=== PATIENT | female | born 1970 ===

== ENCOUNTER 2017-09-05 11:10 | Outpatient (RCR) | payer OTHER ==
[2014-05-19 17:40] VITALS: BMI 25.5
[2015-07-11 15:52] VITALS: BP 135/80
--- NOTE | 2017-08-20 12:33 | RADIOLOGY IMAGING REPORT ---
FACILITY: [facility] PATIENT NAME: Tracy Avila : 1970 MR: [id number] V: [id number] EXAM DATE: ORDERING PHYSICIAN: NAHOMY RICARDO TECHNOLOGIST: Location: [facility] Patient: Tracy Avila : 1970 Visit/Account:[id number] Date of Sevice: 08/20/2017 ABDOMEN/PELVIS CT W/WO CONTRAST HISTORY: Elevated LFTs, flank pain, dark urine, history of breast cancer TECHNIQUE: Axial images acquired through the abdomen/pelvis both with and without IV contrast.. Jacqueline nal and sagittal reformatting also performed. Dose Lowering Technique One of the following dose optimization techniques was utilized in the performance of this exam: Autom ated exposure control; adjustment of the mA and/or kV according to the patient's size; or use of an i terative reconstruction technique. Specific details can be referenced in the facility's radiology C T exam operational policy. CONTRAST: 75 mL Isovue-370 COMPARISON: None FINDINGS: Visualized lung bases: Small amount linear scarring in the inferior right middle lobe 2.6 cm bulla i n the left lower lobe Hepatobiliary: Calcified granulomas. There is a slightly hyperdense 1.9 cm structure within the gal lbladder which may represent a large gallstone or sludge ball. . No evidence of biliary ductal dila tation. Spleen: Calcified granulomas Adrenals: There is mild nodular thickening of the left adrenal gland. Right adrenal gland appears u nremarkable Pancreas: Negative. Kidneys ureters and bladder: There is no demonstration of urolithiasis. There is patchy heterogeneou s enhancement of the right renal parenchyma including the medulla and cortex. This could represent m ultifocal pyelonephritis. Genitalia: There are fallopian tube implants GI: Small hiatal hernia. Moderate amount of fecal material seen throughout colon which can be seen with constipation Vessels/spaces/nodes: Negative. Bones/soft tissues: No aggressive appearing bone lesions are seen Additional findings: None pertinent. IMPRESSION: Evidence of a prior cranial millimeters process There is a 1.9 cm slightly hyperdense structure within the gallbladder which may represent a large ga llstone or sludge ball. There is no evidence of biliary ductal dilatation. Mild nodular thickening of the left adrenal gland There is patchy heterogeneous enhancement of the right renal parenchyma including the medulla and cor wilfrido which could represent multifocal pyelonephritis. Correlation with clinical findings suggested Small hiatal hernia Moderate amount of fecal material seen throughout colon which can be seen with constipation Report Dictated By: Anne Geiger MD at 08/20/2017 12:18 PM Report E-Signed By: Anne Geiger MD at 08/20/2017 12:28 PM WSN:[email or web address]
[2017-08-22 14:14] LABS: PLATELET COUNT, AUTOMATED 399 K/uL (150-450)
[2017-08-29 08:51] LABS: PLATELET COUNT, AUTOMATED 578 K/uL (150-450)
[~2017-09-05 11:10] MED LIST: AMOX-559 PO; ASCO-188 PO; ASPI-1471 PO; ASPI81TA94 PO; AZIT-17 PO; CHOL200021 PO; CHOL200074 PO; CIPR PO; CIPR-214 PO; CIPR500S PO; CYAN25004 PO; DIAZ-308 PO; DM/P295L PO; DOCU-202 PO; DOCU-416 PO; DOCU-442 PO; DOXY50SY2 PO; DULO60CA56 PO; EXE25PT PO; GABA-549 PO; GABA300S PO; GARL3CAP PO; GLUC100026 PO; IBUP400T13 PO; IOPAMIDOL 76% 75 ML INFUS BTL 75 ML ONE; LEVO-85 PO; LOR1 PO; LORA-1455 PO; MULT-1335 PO; NS 0.9% 50 ML VIAL 50 ML ONE; OFLO5DRO45 LEFT EAR; OLME1TAB57 PO; OLME20TA PO; OMEG-11 PO; ONDA8TAB91 PO; OSE75 PO; OXYC-865 PO; PER PO; PREG50CA48 PO; RANI-318 PO; RANI-324 PO; SILV20CR2 TP; TAMO20TA24 PO; TRAZ-156 PO; VALA100062 PO; VENL75CA58 PO; VITA-175 PO; VITA1CAP46 PO
[2017-09-05 11:30] LABS: PLATELET COUNT, AUTOMATED 301 K/uL (150-450)
== END 2017-09-19 11:09 | disposition home or self-care (01) ==
LOC: SPU 11:10
PROVIDERS: ATTEND Nurse Practitioner Primary Care
DX: N10 Acute pyelonephritis (principal); R74.8 Abnormal levels of other serum enzymes; R10.9 Unspecified abdominal pain; N18.3 Chronic kidney disease, stage 3 (moderate); R82.99 Other abnormal findings in urine; R91.8 Other nonspecific abnormal finding of lung field; K44.9 Diaphragmatic hernia without obstruction or gangrene
CPT/HCPCS: 74178; 85025; 87502; J7050; Q9967; 82040; 82247; 82310; 82374; 82435; 82565; 82947; 84075; 84132; 84155; 84295; 84450; 84460; 84520

== ENCOUNTER 2017-10-14 14:07 | Outpatient (RCR) | payer OTHER ==
[2014-05-19 17:40] VITALS: BMI 25.5
[~2017-10-14 14:07] MED LIST changes: +IBUP1TAB78 PO; -IOPAMIDOL 76% 75 ML INFUS BTL 75 ML ONE; +MELO-205 PO; +NAPR220C12 PO; -NS 0.9% 50 ML VIAL 50 ML ONE; +OLM20 PO; -OLME20TA PO
[2017-10-20] MEDS ORDERED: VENL75CA58 PO (08:21)
== END 2017-10-16 13:27 | disposition home or self-care (01) ==
LOC: RAON 14:07
PROVIDERS: ATTEND Radiology Radiation Oncology
DX: Z02.9 Encounter for administrative examinations, unspecified (principal)

== ENCOUNTER → 2017-10-17 | Outpatient (CLI) | payer OTHER ==
[2014-05-19 17:40] VITALS: BMI 25.5
== END ==
LOC: LAB 10:07
PROVIDERS: ATTEND Nurse Practitioner Primary Care
DX: R10.9 Unspecified abdominal pain (principal)
CPT/HCPCS: 81001

== ENCOUNTER → 2017-10-17 | Outpatient (CLI) | payer OTHER ==
[2014-05-19 17:40] VITALS: BMI 25.5
== END ==
LOC: SPU 11:50
PROVIDERS: ATTEND Nurse Practitioner Primary Care
DX: R10.9 Unspecified abdominal pain (principal)
CPT/HCPCS: 82040; 82247; 82310; 82374; 82435; 82565; 82947; 84075; 84132; 84155; 84295; 84450; 84460; 84520

== ENCOUNTER 2017-11-14 11:05 | Outpatient (RCR) | payer OTHER ==
[2014-05-19 17:40] VITALS: BMI 25.5
[2015-07-11 15:52] VITALS: BP 135/80
[~2017-11-14 11:05] MED LIST changes: -RANI-324 PO; +RANI-366 PO
--- NOTE | 2017-11-14 12:07 | RADIOLOGY IMAGING REPORT ---
FACILITY: [facility] PATIENT NAME: Tracy Avila : 1970 MR: [id number] V: [id number] EXAM DATE: ORDERING PHYSICIAN: DESEAN SOTO TECHNOLOGIST: Location: [facility] [place] Patient: Tracy Avila : 1970 Visit/Account:[id number] Date of Sevice: 11/14/2017 Technique: WRIST RIGHT 2 VIEW HISTORY: R wrist pain, injury Comparison studies: None FINDINGS: There is no acute fracture. The alignment of the right wrist is maintained. Soft tissues ar e unremarkable. IMPRESSION: 1. No acute osseous process. Report Dictated By: Axel Deal DO at 11/14/2017 12:00 PM Report E-Signed By: Axel Deal DO at 11/14/2017 12:01 PM WSN:[id number]
[2017-12-01] MEDS ORDERED: OLM20 PO (08:16)
== END 2017-12-26 10:27 | disposition home or self-care (01) ==
LOC: SPU 11:05
PROVIDERS: ATTEND Nurse Practitioner Primary Care
DX: N10 Acute pyelonephritis (principal); R74.8 Abnormal levels of other serum enzymes

== ENCOUNTER → 2018-01-15 | Outpatient (REF) ==
[2014-05-19 17:40] VITALS: BMI 25.5
== END ==
DX: Z02.9 Encounter for administrative examinations, unspecified (principal)

== ENCOUNTER → 2018-02-18 | Outpatient (CLI) | payer OTHER ==
[2014-05-19 17:40] VITALS: BMI 25.5
[~2018-02-18] MED LIST changes: +OMEP40CA48 PO; +ONDA8TAB94 PO
[2018-02-18 12:08] LABS: PLATELET COUNT, AUTOMATED 303 K/uL (150-450)
== END ==
LOC: LAB 11:51
PROVIDERS: ATTEND Nurse Practitioner Primary Care
DX: R10.9 Unspecified abdominal pain (principal); Z85.3 Personal history of malignant neoplasm of breast
CPT/HCPCS: 36415; 81001; 82040; 82150; 82247; 82310; 82374; 82435; 82565; 82947; 83690; 84075; 84132; 84155; 84295; 84450; 84460; 84520; 85025; 86300

== ENCOUNTER → 2018-08-12 | Outpatient (CLI) | payer OTHER ==
[2014-05-19 17:40] VITALS: BMI 25.5
[~2018-08-12] MED LIST changes: -TRAZ-156 PO; +TRAZ50TA34 PO
--- NOTE | 2018-08-12 11:29 | RADIOLOGY IMAGING REPORT ---
FACILITY: [facility] [place] PATIENT NAME: Tracy Avila : 1970 MR: [id number] V: [id number] EXAM DATE: ORDERING PHYSICIAN: CALLI TAYLOR TECHNOLOGIST: Location: [facility] Patient: Tracy Avila : 1970 Visit/Account:[id number] Date of Sevice: 08/12/2018 DEXA Scan Clinical history: History of breast cancer 2013. Comparison: DEXA scan from . LUMBAR SPINE: The bone mineral density (BMD) measured from L1-L4 correlates with a Z-score of 0.2 and a T-score of 0.4 which is Normal as defined by the World Health Organization. The corresponding risk of fracture in the lumbar spine is Not increased compared with a young adult reference population. This value villaseñor s decrease by 2.3 % since the prior study. More than 5% change is considered significant. HIP: Bone mineral density (BMD) measured in the LEFT total hip region correlates with a Z-score 1.1 and a T-score of 1.0 which is normal as defined by the World Health Organization. The corresponding risk of fracture in the hip is Not i ncreased compared to a young adult reference population. This value has decrease by 2.7 % since the p rior study. More than 5% change is considered significant. T score left femoral neck -0.4 Bone mineral density (BMD) measured in the Femoral Neck region measures 0.988 g/cm?. IMPRESSION: 1. Lumbar spine: Normal. There has been 2.3% decrease in the bone mineral density since the previou s exam. 2. Left Total Hip: Normal. There has been 2.7% decrease in the bone mineral density since the previ ous exam. 3. Femoral Neck: Bone Mineral Density is 0.988 g/cm? The next DEXA scan of this patient should include the following sites: L1-L4 and the left hip. FRAX? WHO Fracture Risk Assessment Tool link: <http://www.shef.ac.uk/FRAX/tool.jsp?locationValue=9> PLEASE NOTE: 1) The World Health Organization defines low BMD as follows: T-score Normal > -1 Osteopenia < -1 and > -2.5 Osteoporosis < -2.5 without fractures Established osteoporosis < -2.5 with fractures 2) In general, you may wish to consider: Diagnosis Treatment Follow-up DEXA Normal BMD Prevention 2-3 years Osteopenia Prevention/therapy 1-2 years Osteoporosis Therapy Yearly 3) Fracture risk estimated from the T-score is more accurate for vertebral fractures (often spontane ous) than for hip fractures. Report Dictated By: Anne Geiger MD at 08/12/2018 11:24 AM Report E-Signed By: Anne Geiger MD at 08/12/2018 11:26 AM WSN:[email or web address]
== END ==
LOC: RAD 00:52
DX: C50.411 Malignant neoplasm of upper-outer quadrant of right female breast (principal); Z17.0 Estrogen receptor positive status [ER+]; Z91.89 Other specified personal risk factors, not elsewhere classified
CPT/HCPCS: 77080

== ENCOUNTER → 2018-09-16 | Outpatient (CLI) | payer OTHER ==
[2014-05-19 17:40] VITALS: BMI 25.5
[~2018-09-16] MED LIST changes: +CALC-83; +CHOL500050 PO; +[UNRECOGNIZED DRUG - CODE] PO
== END ==
LOC: LAB 13:32
PROVIDERS: ATTEND Nurse Practitioner Primary Care
DX: E55.9 Vitamin D deficiency, unspecified (principal); Z85.3 Personal history of malignant neoplasm of breast
CPT/HCPCS: 36415; 82306; 86300

== ENCOUNTER 2018-09-21 13:28 | Outpatient (RCR) | payer OTHER ==
[2014-05-19 17:40] VITALS: Ht 165.1 cm; Wt 78.0 kg
[~2018-09-21] VITALS: Ht 165.1 cm; Wt 78.0 kg
[2018-09-22] MEDS ORDERED: NS(*) 0.9% 100 ML BAG 100 ML IVPB PRN (15:30)
[2018-09-22] MEDS ORDERED: DEXTROSE 5%(*) 100 ML BAG 100 ML IVPB PRN (15:30)
[2018-09-22] MEDS ORDERED: LIDOCAINE/SOD BICARB 8.4% SYR ID PRN (15:30)
[2018-09-22 15:40] VITALS: BP 105/85
[2018-09-22] MEDS ORDERED: ZOLEDRONIC ACID 4 MG/5 ML VIAL 4 MG in NS(*) 0.9% 100 ML BAG 100 ML IVPB ONE (16:35)
[2018-09-22] MEDS ORDERED: ZOLEDRONIC ACID 4 MG/5 ML VIAL 3.3 MG in NS(*) 0.9% 100 ML BAG 100 ML IVPB ONE (16:35)
[2018-10-13] MEDS ORDERED: CALC500T6 PO (14:57)
[2018-10-20] MEDS ORDERED: VENL75CA58 PO (11:09)
[2018-11-04] MEDS ORDERED: ZOLP-1 PO (15:30)
[2018-11-26] MEDS ORDERED: DOCU-416 PO (12:24)
[2018-11-26] MEDS ORDERED: OXYC-854 PO (12:24)
[2018-12-05] MEDS ORDERED: OXYC-865 PO (23:22)
[2018-12-07] MEDS ORDERED: [UNRECOGNIZED DRUG - CODE] IV (10:37)
[2018-12-07] MEDS ORDERED: ONDA4TAB9 PO (10:37)
[2018-12-08] MEDS ORDERED: ACET500T68 PO (11:05)
[2018-12-08] MEDS ORDERED: IBUP600T22 PO (11:05)
[2018-12-09 10:36] VITALS: Ht 165.1 cm; Wt 78.0 kg
[2018-12-17] MEDS ORDERED: BENZ100C4 PO (08:00)
== END 2018-12-20 ==
LOC: ONC 13:28
PROVIDERS: ATTEND Internal Medicine
DX: M81.8 Other osteoporosis without current pathological fracture (principal)
CPT/HCPCS: 83735; 84100; 96365; J3489; J7050; 82040; 82247; 82310; 82374; 82435; 82565; 82947; 84075; 84132; 84155; 84295; 84450; 84460; 84520

== ENCOUNTER → 2018-11-25 | Outpatient (CLI) | payer OTHER ==
[2014-05-19 17:40] VITALS: BMI 25.5
[~2018-11-25] MED LIST changes: +CALC500T6 PO; +OXYC-854 PO; +ZOLP-1 PO
[2018-11-25 08:35] LABS: PLATELET COUNT, AUTOMATED 341 K/uL (150-450)
== END ==
LOC: SPU 08:19
PROVIDERS: ATTEND Surgery
DX: C50.911 Malignant neoplasm of unspecified site of right female breast (principal); I10 Essential (primary) hypertension
CPT/HCPCS: 82310; 82374; 82435; 82565; 82947; 84132; 84295; 84520; 85025

== ENCOUNTER 2018-11-26 02:30 | Day surgery (SDC) | payer OTHER ==
[2014-05-19 17:40] VITALS: Ht 167.6 cm; Wt 79.4 kg
[~2018-11-26] VITALS: Ht 167.6 cm; Wt 79.4 kg
[2018-11-26] VITALS (7 sets, daily range): BP systolic 107–133; BP diastolic 67–91
[~2018-11-26 02:30] MED LIST changes: -OXYC-854 PO
--- NOTE | 2018-11-26 08:27 | EKG ---
FACILITY: [facility] PATIENT NAME: LOTTIE BACA : [id number] MR: [id number] V: [id number] EXAM DATE: ORDERING PHYSICIAN: ROBBIE HERNANDEZ TECHNOLOGIST: BHARAT Test Reason : PREOP-MASTECTOMY Blood Pressure : / mmHG Vent. Rate : 076 BPM Atrial Rate : 076 BPM P-R Int : 154 ms QRS Dur : 070 ms QT Int : 390 ms P-R-T Axes : 064 074 069 degrees QTc Int : 438 ms Sinus rhythm No acute appearing findings No previous ECGs available Confirmed by BREANNA GODDARD ([id number]) on 11/26/2018 2:37:20 PM Referred By: EMA Confirmed By:BREANNA GODDARD
[2018-11-26] MEDS ORDERED: MIDAZOLAM 2 MG/2 ML VIAL IVP PRN (08:55)
[2018-11-26] MEDS ORDERED: NORMOSOL R SOLN(*) 1000 ML BAG 1,000 ML IV PRN (08:55)
[2018-11-26] MEDS ORDERED: LIDOCAINE/SOD BICARB 8.4% SYR ID ONE (08:55)
[2018-11-26] MEDS ORDERED: ceFAZolin(*) 2GM/D5W 50ML 50 ML IVPB ONE (08:55)
[2018-11-26] MEDS ORDERED: fentaNYL CITR 250 MCG/5 ML AMP ONE (09:12)
[2018-11-26] MEDS ORDERED: LIDOCAINE 2% IV 100 MG/5ML SYR ONE (09:12)
[2018-11-26] MEDS ORDERED: PROPOFOL EMUL(*) 10MG/ML 20 ML 20 ML ONE (09:12)
[2018-11-26] MEDS ORDERED: ROPIVACAINE 0.5% 20 ML VIAL ONE ×3 (09:24→11:29)
[2018-11-26] MEDS ORDERED: DEXAMETHASONE SOD 4 MG/ML VIAL ONE (09:50)
[2018-11-26] MEDS ORDERED: ONDANSETRON 4 MG/2 ML VIAL ONE (09:50)
[2018-11-26] MEDS ORDERED: PHENYLEPHRINE 10 MG/1 ML VIAL ONE (10:11)
[2018-11-26] MEDS ORDERED: VASOPRESSIN 20 UNIT/ML VIAL ONE (10:24)
[2018-11-26] MEDS ORDERED: DOCU-416 PO (12:24)
[2018-11-26] MEDS ORDERED: OXYC-854 PO (12:24)
--- NOTE | 2018-11-26 12:31 | Short(Outpt) Discharge Summary ---
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 (2) S/P mastectomy, bilateral Status: Chronic Departure Discharge to: Home, Self Care Discharge Instructions Home Meds Active Scripts Docusate Sodium (COLACE) 100 Mg Capsule, 1 CAP PO BID, #30 CAPSULE 0 Refills Prov:SCAR BOO MD 11/26/18 Oxycodone Hcl/Acet 5/325 Mg (ENDOCET 5-325 TABLET) 1 Each Tablet, 1 TAB PO Q4H PRN for PAIN, #20 TAB 0 Refills Prov:SCAR BOO MD 11/26/18 Zolpidem Tartrate (AMBIEN) 5 Mg Tablet, 1 TAB PO QHS PRN for INSOMNIA, #30 TAB 0 Refills Prov:DESEAN SOTO DNP, COAL INSPECTOR-BC 11/04/18 Venlafaxine Hcl (EFFEXOR XR) 75 Mg Cap.er.24h, 75 MG PO QDAY, #90 TAB 1 Refill Prov:DESEAN SOTO DNP, COAL INSPECTOR-BC 10/20/18 Olmesartan Medoxomil (BENICAR) 20 Mg Tablet, 1 TAB PO QDAY, #90 TAB 3 Refills Prov:DESEAN SOTO DNP, COAL INSPECTOR-BC 09/16/18 Omeprazole (OMEPRAZOLE) 40 Mg Capsule.dr, 40 MG PO QDAY for 90 Days, #90 CAP 1 Refill Prov:DESEAN SOTO DNP COAL INSPECTOR-BC 06/09/18 Gabapentin (GABAPENTIN) 300 Mg Capsule, 3 CAP PO QHS for neuropathy, #90 CAPSULE 11 Refills Prov:DESEAN SOTO DNP COAL INSPECTOR-BC 03/11/18 Ondansetron (ZOFRAN ODT) 8 Mg Tab.rapdis, 1 TAB PO Q12H PRN for NAUSEA, #10 TAB 0 Refills Prov:DESEAN SOTO DNP, [facility] 02/18/18 Reported Medications Calcium Carbonate (CALCIUM) Unknown Strength Tablet, PO QDAY 10/13/18 Diflunisal (DIFLUNISAL) 500 Mg Tablet, 1 TAB PO QDAY, TAB 09/16/18 Exemestane (AROMASIN) 25 Mg Tab, 1 TAB PO QDAY, TAB 08/20/17 [place]-3 Fatty Acids/Fish Oil (FISH OIL 1,000 MG CAPSULE) 1 Each Capsule, 1 CAP PO QDAY, CAPSULE 11/12/16 Cholecalciferol (Vitamin D3) (VITAMIN D-3) 2,000 Unit Capsule, 5000 UNIT PO DAILY, CAPSULE 05/20/16 Follow up Referrals: General Surgery - 12/09/18 @ Surgery, General with SCAR BOO MD You have a follow up appointment scheduled with Dr. Boo on 12/09/18, at 3:30pm. Diet: Regular Activity: No Heavy Lifting Special Instructions: You may remove all the surgical dressings and drain dressings on 11/18/18, then you can shower. After showering, leave the incisions open to air but leave the steristrips in place until they fall off on their own. You may place drain sponges around the drains if they are leaking around the drains. Don't immerse the incisions or drains until 2 weeks after the drains are removed. Keep a drainage log and record how much you empty from each drain every day and bring log to your follow up appointment so I can determine if the drains can be safely removed. If one or both drain less than 25mL per 24 hours for 3 days in a row, call Ronel, my clinic nurse, and she'll have you come in so I can pull the drain(s) that are draining less than 25mL/24 hours. Avoid any activity that involves raising your arms above the level of your shoulders or behind your back for 2 weeks after surgery. Problem Qualifiers (1) Disorder of breast implant: Encounter type: subsequent encounter Qualified Codes: T85.9XXD - Unspecified complication of internal prosthetic device, implant and graft, subsequent encounter SCAR BOO MD Nov 26, 2018 12:31
--- NOTE | 2018-11-26 12:38 | Post Operative Progress Note ---
Post Operative Progress Note Date: Nov 26, 2018 Time: 12:31 Surgeon: Nell Dictation number: [id number] Anesthesia: LMA by Dr. Ramirez Pre-Op Diagnosis: Undesired left breast implant Excess skin in both mastectomy sites Post-Op Diagnosis: JAKOB Findings: C/W dx Procedure(s): Left breast implant removal Bilateral mastectomy revision Specimen Removed:(May be N/A): Right Breast tissue Left Breast tissue Complications: None Fluids: See anesthesia record Estimated Blood Loss: Minimal Date OP Note Dictated: Nov 26, 2018 Time OP Note Dictated: 12:33 SCAR BOO MD Nov 26, 2018 12:38
--- NOTE | 2018-11-26 14:26 | OPERATIVE REPORT 1 ---
EVENT DATE: November 26, 2018 SURGEON: Elder Camejo MD ANESTHESIOLOGIST: Kentrell Ramirez MD ANESTHESIA: LMA. PREOPERATIVE DIAGNOSIS 1. History of bilateral mastectomies for right breast cancer. 2. Undesired left breast implant. POSTOPERATIVE DIAGNOSIS 1. History of bilateral mastectomies for right breast cancer. 2. Undesired left breast implant. PROCEDURE PERFORMED 1. Removal of left breast implant. 2. Bilateral mastectomy revision. COMPLICATIONS None. CONDITION Stable. ESTIMATED BLOOD LOSS Minimal. INDICATIONS Patient is a 48-year old female who had right breast cancer about five years ago and has really responded well to therapy and remains in remission but she underwent bilateral tissue expanders and then ultimately subpectoral implants after she was completed with therapy. However, her right breast healing was complicated by dehiscence and ultimately that implant had to be removed and then she decided not to have it replaced and now wishes to have left implant removed and wishes to have the excess skin excised to create a more flat contour of her chest. DESCRIPTION OF PROCEDURE The patient was brought to the operating room and placed supine on the operating table, where LMA anesthesia was administered and bilateral chest was prepped and draped in sterile fashion. Time-out was completed and I had previously marked the skin in preop of her right breast. I anesthetized the skin where I marked it and removed a large ellipse of excess skin all the way through the dermis and subcutaneous fat down to the scar tissue and there was a capsule that I stripped a good part of it out and then scraped up the rest with a Bovie scratch pad. I passed the specimen off the field and then placed a 10 mm flat David-Salazar drain in the subcutaneous pocket and then closed the resulting wound with interrupted 3-0 Vicryl deep sutures followed by another layer of 3-0 Vicryl interrupted subcutaneous sutures and then 3-0 Vicryl deep dermal sutures and 4-0 Monocryl subcuticular sutures. I then went over to the other side and marked the skin to make it symmetric with the first side and then made an incision in the left breast and down to the capsule and out in the space where the implant is located and then removed the implant easily. I then removed as much as the capsule as I could but some of it was very adherent to the pectoralis muscle so I left this one alone and scraped it with a Bovie scratchpad. I then removed a large ellipse of skin and using my measurements to make it look as symmetric to the patient's right side as I could. Once this was completed, I placed a 10 mm flat David-Salazar drain and sewed both of these to the skin with 0 silk suture. I then closed this wound in the same fashion that I closed the first one with deep interrupted 3-0 Vicryl sutures followed by interrupted 3-0 Vicryl subcutaneous sutures. The skin was closed with interrupted 3-0 Vicryl deep dermal sutures and 4-0 Monocryl running subcuticular sutures. The skin was cleaned and dried on both sides and steri-strips were applied on both incisions followed by sterile surgical dressings and then the drains were covered with drain gauze, which was taped into place. She was then awakened and LMA removed. She was transported to the recovery room in stable condition, having tolerated the procedure without any apparent problems. VIN
== END 2018-11-26 13:00 | disposition home or self-care (01) ==
LOC: OR 02:30
PROVIDERS: ATTEND Surgery
DX: Z98.82 Breast implant status (principal); Z85.3 Personal history of malignant neoplasm of breast; I10 Essential (primary) hypertension
CPT/HCPCS: 19328; 88302; 93005; J1100; J2001; J2250; J2370; J2405; J2704; J2795; J3010; J3490; J0690

== ENCOUNTER 2018-12-05 21:09 | Emergency (ER) | payer OTHER ==
[2014-05-19 17:40] VITALS: Wt 79.4 kg
[~2018-12-05 21:09] MED LIST changes: +OXYC-854 PO
--- NOTE | 2018-12-05 21:23 | ER Report ---
History and Physical Time Seen By MD: 21:23 Hx. of Stated Complaint: Pt worried about post surgery infection. HPI/ROS CHIEF COMPLAINT: Postoperative infection HISTORY OF PRESENT ILLNESS: This is a 48-year-old female. She had a recent removal of breast implant from the left breast and a mastectomy on the right breast November 26. Incisions are healing well. David-Salazar drain in place with minimal drainage. Today started having increased pain in the right chest wall. This appears to be over the site where the MÓNICA drain goes through the skin but not associated with the incision. Called her surgeon who started her on Au gmentin and she has had one dose today. They were going to pull the MÓNICA drain however started having some purulent drainage from this area which was concerning. Allergies: Coded Allergies: latex (Unverified Allergy, Intermediate, RASH, 12/05/18) Home Meds Active Scripts Oxycodone Hcl/Acetaminophen (PERCOCET 5-325 MG TABLET) 1 Each Tablet, 1 EACH PO Q4H PRN for PAIN, #12 TAB 0 Refills Prov:VERONIKA HARRISON MD 12/05/18 Docusate Sodium (COLACE) 100 Mg Capsule, 1 CAP PO BID, #30 CAPSULE 0 Refills Prov:SCAR BOO MD 11/26/18 Oxycodone Hcl/Acet 5/325 Mg (ENDOCET 5-325 TABLET) 1 Each Tablet, 1 TAB PO Q4H PRN for PAIN, #20 TAB 0 Refills Prov:SCAR BOO MD 11/26/18 Zolpidem Tartrate (AMBIEN) 5 Mg Tablet, 1 TAB PO QHS PRN for INSOMNIA, #30 TAB 0 Refills Prov:DESEAN SOTO DNP, FNP-ANNIE 11/04/18 Venlafaxine Hcl (EFFEXOR XR) 75 Mg Cap.er.24h, 75 MG PO QDAY, #90 TAB 1 Refill Prov:DESEAN SOTO DNP, FNP-BC 10/20/18 Olmesartan Medoxomil (BENICAR) 20 Mg Tablet, 1 TAB PO QDAY, #90 TAB 3 Refills Prov:DESEAN SOTO DNP, FNP-BC 09/16/18 Omeprazole (OMEPRAZOLE) 40 Mg Capsule.dr, 40 MG PO QDAY for 90 Days, #90 CAP 1 Refill Prov:DESEAN SOTO DNP, FNP-BC 06/09/18 Gabapentin (GABAPENTIN) 300 Mg Capsule, 3 CAP PO QHS for neuropathy, #90 CAPSULE 11 Refills Prov:DESEAN SOTO DNP, FNP- 03/11/18 Ondansetron (ZOFRAN ODT) 8 Mg Tab.rapdis, 1 TAB PO Q12H PRN for NAUSEA, #10 TAB 0 Refills Prov:DESEAN SOTO DNP, FNP- 02/18/18 Reported Medications Calcium Carbonate (CALCIUM) Unknown Strength Tablet, PO QDAY 10/13/18 Diflunisal (DIFLUNISAL) 500 Mg Tablet, 1 TAB PO QDAY, TAB 09/16/18 Exemestane (AROMASIN) 25 Mg Tab, 1 TAB PO QDAY, TAB 08/20/17 [place]-3 Fatty Acids/Fish Oil (FISH OIL 1,000 MG CAPSULE) 1 Each Capsule, 1 CAP PO QDAY, CAPSULE 11/12/16 Cholecalciferol (Vitamin D3) (VITAMIN D-3) 2,000 Unit Capsule, 5000 UNIT PO DAILY, CAPSULE 05/20/16 Reviewed Nurses Notes: Yes Hx Smoking: No Smoking Status: Never Smoker Exposure to Second Hand Smoke?: No Hx Substance Use Disorder: No Hx Alcohol Use: Yes Constitutional Vital Sign - Last 24 Hours 12/05/18 12/05/18 12/05/18 12/05/18 21:13 21:14 21:24 21:39 Temp 99.8 Pulse 116 118 109 Resp 16 B/P (MAP) 116/76 116/76 (89) Pulse Ox 92 94 90 O2 Delivery Room Air 12/05/18 12/05/18 12/05/18 12/05/18 21:54 22:09 22:24 22:29 Pulse 99 99 97 102 Pulse Ox 91 91 87 92 12/05/18 12/05/18 12/05/18 12/05/18 22:33 22:44 22:51 22:59 Pulse 99 101 B/P (MAP) 106/72 (83) Pulse Ox 88 94 O2 Flow Rate 1.0 12/05/18 12/05/18 12/05/18 12/05/18 23:00 23:14 23:29 23:30 Pulse 98 96 B/P (MAP) 107/73 (84) 101/68 (79) Pulse Ox 94 97 12/05/18 23:44 Pulse 94 Pulse Ox 94 Physical Exam General Appearance: The patient is alert, has no immediate need for airway protection and no current signs of toxicity. Respiratory: Breathing easily, clear to auscultation. Cardiac: regular rate and rhythm Neuro: Alert and oriented, no deficits Skin: Area of redness marked earlier by the patient and her . Incision itself looks good. The area of redness marked is below this includes an area where the MÓNICA drain goes through the skin. No current purulence in the MÓNICA drain. Red skin is hot and warm. Cannot feel any areas of fluid collection or fluctuance. DIFFERENTIAL DIAGNOSIS: After history and physical exam differential diagnosis was considered for cellulitis, we'll go ahead and get labs and also ultrasound of the area to rule out abscess. Medical Decision Making Data Points Result Diagram: 12/05/18211912/05/182119 Laboratory Hematology Test 08/15/14 00:00 12/05/18 21:20 Neutrophils # 2.1 K/CUMM (2.0-8.5) Hematocrit 29.0 % (42-52) Hemoglobin 9.5 G/DL (12-16) Platelet Count 473 th/mm3 White Blood Count 3.6 K/CUMM (4.5-10.5) Albumin 4.2 G/DL (3.5-5) 4.3 g/dl (3.5-5.0) Alkaline Phosphatase 90 IU/L (38-126) 119 U/L (0-126) Alanine Aminotransferase (ALT/SGPT) 33 U/L (9-52) 66 U/L (0-56) Aspartate Amino Transf (AST/SGOT) 20 IU/L (14-36) 91 U/L (0-35) Blood Urea Nitrogen 16 MG/DL (7-20) 13 mg/dl (7-18) Calcium Level 9.2 MG/DL (65-115) 9.8 mg/dl (8.4-10.2) Chloride Level 103 MMOL/L (22-30) 98 mmol/L (98-107) Carbon Dioxide Level 28 MMOL/L (22-30) 24 mmol/L (22-31) Creatinine 0.62 MG/DL (0.7-1.2) 1.00 mg/dl (0.52-1.04) Glucose Level 102 MG/DL (70-110) Potassium Level 3.8 MMOL/L (3.6-5.0) 3.7 mmol/L (3.5-5.0) Sodium Level 137 MMOL/L (136-145) 134 mmol/L (137-145) Total Protein 6.9 G/DL (6.3-8.2) 7.4 g/dl (6.3-8.2) Total Bilirubin 0.4 MG/DL (1.1-1.5) 0.5 mg/dl (0.2-1.3) Red Blood Count 4.49 M/uL (4.17-5.56) Mean Corpuscular Volume 92.3 fL (80.0-96.0) Mean Corpuscular Hemoglobin 31.9 pg (26.0-33.0) Mean Corpuscular Hemoglobin Concent 34.5 g/dL (32.0-36.0) Red Cell Distribution Width 12.9 % (11.5-14.5) Mean Platelet Volume 7.7 fL (7.2-11.1) Neutrophils (%) (Auto) 81.8 % (39.4-72.5) Lymphocytes (%) (Auto) 9.1 % (17.6-49.6) Monocytes (%) (Auto) 7.7 % (4.1-12.4) Eosinophils (%) (Auto) 0.6 % (0.4-6.7) Basophils (%) (Auto) 0.8 % (0.3-1.4) Nucleated RBC Relative Count (auto) 0.0 /100WBC Neutrophils # (Auto) 8.6 K/uL (2.0-7.4) Lymphocytes # (Auto) 1.0 K/uL (1.3-3.6) Monocytes # (Auto) 0.8 K/uL (0.3-1.0) Eosinophils # (Auto) 0.1 K/uL (0.0-0.5) Basophils # (Auto) 0.1 K/uL (0.0-0.1) Nucleated RBC Absolute Count (auto) 0.01 K/uL Erythrocyte Sedimentation Rate 38 mm/HOUR (0-20) Glomerular Filtration Rate Calc 58.9 Random Glucose 120 mg/dl (75-110) Lactate 2.3 mmol/L (0.7-2.1) Chemistry Test 08/15/14 00:00 12/05/18 21:20 Neutrophils # 2.1 K/CUMM (2.0-8.5) Hematocrit 29.0 % (42-52) 41.5 % (34.0-47.0) Hemoglobin 9.5 G/DL (12-16) 14.3 g/dL (12.0-16.0) Platelet Count 473 th/mm3 331 K/uL (150-450) White Blood Count 3.6 K/CUMM (4.5-10.5) 10.5 k/uL (4.5-11.0) Albumin 4.2 G/DL (3.5-5) 4.3 g/dl (3.5-5.0) Alkaline Phosphatase 90 IU/L (38-126) 119 U/L (0-126) Alanine Aminotransferase (ALT/SGPT) 33 U/L (9-52) 66 U/L (0-56) Aspartate Amino Transf (AST/SGOT) 20 IU/L (14-36) 91 U/L (0-35) Blood Urea Nitrogen 16 MG/DL (7-20) Calcium Level 9.2 MG/DL (65-115) 9.8 mg/dl (8.4-10.2) Chloride Level 103 MMOL/L (22-30) Carbon Dioxide Level 28 MMOL/L (22-30) Creatinine 0.62 MG/DL (0.7-1.2) Glucose Level 102 MG/DL (70-110) Potassium Level 3.8 MMOL/L (3.6-5.0) Sodium Level 137 MMOL/L (136-145) Total Protein 6.9 G/DL (6.3-8.2) 7.4 g/dl (6.3-8.2) Total Bilirubin 0.4 MG/DL (1.1-1.5) 0.5 mg/dl (0.2-1.3) Red Blood Count 4.49 M/uL (4.17-5.56) Mean Corpuscular Volume 92.3 fL (80.0-96.0) Mean Corpuscular Hemoglobin 31.9 pg (26.0-33.0) Mean Corpuscular Hemoglobin Concent 34.5 g/dL (32.0-36.0) Red Cell Distribution Width 12.9 % (11.5-14.5) Mean Platelet Volume 7.7 fL (7.2-11.1) Neutrophils (%) (Auto) 81.8 % (39.4-72.5) Lymphocytes (%) (Auto) 9.1 % (17.6-49.6) Monocytes (%) (Auto) 7.7 % (4.1-12.4) Eosinophils (%) (Auto) 0.6 % (0.4-6.7) Basophils (%) (Auto) 0.8 % (0.3-1.4) Nucleated RBC Relative Count (auto) 0.0 /100WBC Neutrophils # (Auto) 8.6 K/uL (2.0-7.4) Lymphocytes # (Auto) 1.0 K/uL (1.3-3.6) Monocytes # (Auto) 0.8 K/uL (0.3-1.0) Eosinophils # (Auto) 0.1 K/uL (0.0-0.5) Basophils # (Auto) 0.1 K/uL (0.0-0.1) Nucleated RBC Absolute Count (auto) 0.01 K/uL Erythrocyte Sedimentation Rate 38 mm/HOUR (0-20) Glomerular Filtration Rate Calc 58.9 Lactate 2.3 mmol/L (0.7-2.1) EKG/Imaging Imaging Examination: Ultrasound right chest wall-nonvascular HISTORY: Implant removal and revision mastectomy with drain placement on 11/26/2018. Erythema near the right MÓNICA drain. TECHNIQUE: Grayscale and color flow imaging is performed of the area of interest. Comparison images were obtained of the left side. FINDINGS: There is a tiny crescent shaped anechoic region seen just medial to the right MÓNICA drain. This likely represents trace fluid near/in the operative bed. No surrounding increased color flow is seen to suggest inflammation or abscess. IMPRESSION: 1. Minimal anechoic fluid near the MÓNICA drain in the right chest wall. This is likely a normal postoperative finding. No surrounding color flow to suggest inflammation/abscess. Report Dictated By: Tj Young at 12/05/2018 10:52 PM ED Course/Re-evaluation ED Course Sedimentation rate is mildly elevated. White count is normal but does show a sl ight shift. Metabolic panel normal. Reviewed all this with the patient. Also called and spoke with her surgeon, Dr. Zhang. We will give the patient a dose of IV Rocephin and continue with the Augmentin. MÓNICA drain is pulled here in the ER today. Return if worsening symptoms, otherwise will follow-up with Dr. Zhang on Friday. Decision to Disposition Date: Dec 05, 2018 Decision to Disposition Time: 23:21 Depart Departure Latest Vital Signs Vital Signs Date Time Temp Pulse Resp B/P (MAP) Pulse Ox O2 Delivery O2 Flow Rate FiO2 12/05/18 23:44 94 94 12/05/18 23:30 101/68 (79) 12/05/18 22:51 1.0 12/05/18 21:13 99.8 16 Room Air Impression: Primary Impression: Cellulitis Condition: Improved Disposition: HOME OR SELF-CARE Referrals: DESEAN SOTO DNP, [employer]ER-BC (PCP) New Scripts Oxycodone Hcl/Acetaminophen (PERCOCET 5-325 MG TABLET) 1 Each Tablet 1 EACH PO Q4H PRN for PAIN, #12 TAB 0 Refills Prov: VERONIKA HARRISON MD 12/05/18 Patient Instructions: Cellulitis (ED) Additional Instructions: Keep taking the Augmentin twice a day. Follow-up with Dr. Boo early this coming week for re-evaluation. Return if worsening fevers, pain, nausea/vomiting. Problem Qualifiers Primary Impression: Cellulitis Site of cellulitis: trunk Site of cellulitis of trunk: chest wall Qualified Codes: L03.313 - Cellulitis of chest wall VERONIKA HARRISON MD Dec 05, 2018 21:23
[2018-12-05] MEDS ORDERED: ONDANSETRON 4 MG ODT TABDP SL ONE (21:30)
[2018-12-05 21:57] LABS: PLATELET COUNT, AUTOMATED 331 K/uL (150-450)
--- NOTE | 2018-12-05 23:04 | RADIOLOGY IMAGING REPORT ---
FACILITY: [facility] - [place] PATIENT NAME: Tracy Avila : 1970 MR: [id number] V: [id number] EXAM DATE: ORDERING PHYSICIAN: VERONIKA HARRISON TECHNOLOGIST: Location: [facility] [place] Patient: Tracy Avila : 1970 Visit/Account:[id number] Date of Sevice: 12/05/2018 Examination: Ultrasound right chest wall-nonvascular HISTORY: Implant removal and revision mastectomy with drain placement on 11/26/2018. Erythema near the right MÓNICA drain. TECHNIQUE: Grayscale and color flow imaging is performed of the area of interest. Comparison images w ere obtained of the left side. FINDINGS: There is a tiny crescent shaped anechoic region seen just medial to the right MÓNICA drain. This likely r epresents trace fluid near/in the operative bed. No surrounding increased color flow is seen to sugge st inflammation or abscess. IMPRESSION: 1. Minimal anechoic fluid near the MÓNICA drain in the right chest wall. This is likely a normal postoper ative finding. No surrounding color flow to suggest inflammation/abscess. Report Dictated By: Tj Young at 12/05/2018 10:52 PM Report E-Signed By: Tj Young at 12/05/2018 11:01 PM WSN:[id number]
[2018-12-05] MEDS ORDERED: cefTRIAXone 1 GM VIAL IVP ONE (23:20)
[2018-12-05] MEDS ORDERED: oxyCODONE/ACETAMIN 5/325MG TH 2 TAB/BOTTLE PO ONE (23:20)
[2018-12-05] MEDS ORDERED: OXYC-865 PO (23:22)
[2018-12-05 23:30] VITALS: BP 101/68
== END 2018-12-05 23:59 | disposition home or self-care (01) ==
LOC: ER 21:18
DX: L03.313 Cellulitis of chest wall (principal)
CPT/HCPCS: 36415; 76999; 83605; 85025; 85651; 87040; 96374; 99284; J0696; S0119; 82040; 82247; 82310; 82374; 82435; 82565; 82947; 84075; 84132; 84155; 84295; 84450; 84460; 84520

== ENCOUNTER → 2018-12-07 | Outpatient (CLI) | payer OTHER ==
[2014-05-19 17:40] VITALS: BMI 25.5
[~2018-12-07] MED LIST changes: +ACET500T68 PO; +DEXTROSE 5%(*) 100 ML BAG 100 ML IVPB PRN; +IBUP600T22 PO; +LIDOCAINE/SOD BICARB 8.4% SYR ID PRN; +NS(*) 0.9% 100 ML BAG 100 ML IVPB PRN; +ONDA4TAB9 PO; +ONDANSETRON 4 MG/2 ML VIAL IVP ONE; +[UNRECOGNIZED DRUG - CODE] IV
[2018-12-07] MEDS: LR(*) 1000 ML BAG 1,000 ML IV SCH ×2 (11:18→12:20)
[2018-12-07 11:30] VITALS: BP 110/70
== END ==
LOC: SPU 10:52
PROVIDERS: ATTEND Surgery
DX: L03.90 Cellulitis, unspecified (principal); E86.0 Dehydration
CPT/HCPCS: 96361; 96374; J2405; J7120

== ENCOUNTER 2018-12-08 09:24 | Inpatient (IN) | payer OTHER ==
[~2018-12-08] VITALS: Ht 167.6 cm; Wt 78.1 kg
[~2018-12-08 09:24] MED LIST changes: -ACET500T68 PO; -DEXTROSE 5%(*) 100 ML BAG 100 ML IVPB PRN; -IBUP600T22 PO; -LIDOCAINE/SOD BICARB 8.4% SYR ID PRN; -NS(*) 0.9% 100 ML BAG 100 ML IVPB PRN; -ONDANSETRON 4 MG/2 ML VIAL IVP ONE
[2018-12-08 10:50] VITALS: BP 107/75
[2018-12-08] MEDS ORDERED: VANCOMYCIN 1 GM ADDVIAL 1 GM in NS(*) 0.9% 250 ML ADDVAN BAG 250 ML IVPB ONE (10:55)
[2018-12-08] MEDS ORDERED: FLUSH 10 ML SYR IVP PRN (10:55)
[2018-12-08] MEDS ORDERED: IBUP600T22 PO (11:05)
[2018-12-08] MEDS ORDERED: ACET500T68 PO (11:05)
--- NOTE | 2018-12-08 11:06 | Gen Surgery History & Physical ---
History of Present Illness Chief Complaint Pain, swelling, redness, right chest History of Present Illness 48-year-old female who is now 12 days status post left breast implant removal and bilateral mastectomy revision. She was doing well until 4 days ago when she started feeling increasing pain and swelling in her right chest. This was down by one of the drains. She also experienced redness and so I started her on Augmentin but she felt like she was getting worse and so went into the emergency room. She was given Rocephin and an ultrasound did not reveal any postoperative fluid collections. I then saw her in my office yesterday and she felt pretty poorly and so we gave her 2 L of crystalloid and she was sent home. She calls today reporting that she is feeling worse and feels that there is increased pain and redness in her right chest. I had her come in for direct admission so we can start IV antibiotics and she is failing outpatient therapy. History Problems: (1) Breast cancer, right breast Onset Date: 04/20/2014 Status: Resolved (2) History of lymph node dissection of right axilla Onset Date: ~ 05/2014 Status: Chronic (3) History of mastectomy, total Onset Date: ~ 04/2014 Status: Chronic (4) H/O anterior cruciate ligament surgery Status: Chronic (5) Family history of malignant neoplasm of gastrointestinal tract (6) Family history of polyps in the colon (7) FH: stroke (8) FH: colon cancer (9) FH: Alzheimers disease (10) FH: uterine cancer (11) FH: renal failure (12) FH: myocardial infarction (13) FHx: hypertension (14) S/P mastectomy, bilateral Status: Chronic (15) Consumes alcohol occasionally Status: Acute Home Meds Active Scripts Ondansetron 4 Mg Odt (ONDANSETRON 4 MG ODT) 4 Mg Tab.rapdis, 1 TAB PO TID PRN for NAUSEA, #20 TAB 0 Refills Prov:SCAR BOO MD 12/07/18 Ondansetron Hcl In 0.9 % Nacl (ONDANSETRON-NS 8 MG/50 ML BAG) 8 Mg/50 Ml Piggyback, 4 MG IV ONCE, #4 MG 0 Refills Prov:SCAR BOO MD 12/07/18 Oxycodone Hcl/Acetaminophen (PERCOCET 5-325 MG TABLET) 1 Each Tablet, 1 EACH PO Q4H PRN for PAIN, #12 TAB 0 Refills Prov:VERONIKA HARRISON MD 12/05/18 Docusate Sodium (COLACE) 100 Mg Capsule, 1 CAP PO BID, #30 CAPSULE 0 Refills Prov:SCAR BOO MD 11/26/18 Oxycodone Hcl/Acet 5/325 Mg (ENDOCET 5-325 TABLET) 1 Each Tablet, 1 TAB PO Q4H PRN for PAIN, #20 TAB 0 Refills Prov:SCAR BOO MD 11/26/18 Zolpidem Tartrate (AMBIEN) 5 Mg Tablet, 1 TAB PO QHS PRN for INSOMNIA, #30 TAB 0 Refills Prov:DESEAN SOTO DNP, FNP-ANNIE 11/04/18 Venlafaxine Hcl (EFFEXOR XR) 75 Mg Cap.er.24h, 75 MG PO QDAY, #90 TAB 1 Refill Prov:DESEAN SOTO DNP, FNP-BC 10/20/18 Olmesartan Medoxomil (BENICAR) 20 Mg Tablet, 1 TAB PO QDAY, #90 TAB 3 Refills Prov:DESEAN SOTO DNP, FNP-BC 09/16/18 Omeprazole (OMEPRAZOLE) 40 Mg Capsule.dr, 40 MG PO QDAY for 90 Days, #90 CAP 1 Refill Prov:DESEAN SOTO DNP, FNP-BC 06/09/18 Gabapentin (GABAPENTIN) 300 Mg Capsule, 3 CAP PO QHS for neuropathy, #90 CAPSULE 11 Refills Prov:DESEAN SOTO DNP, FNP-BC 03/11/18 Ondansetron (ZOFRAN ODT) 8 Mg Tab.rapdis, 1 TAB PO Q12H PRN for NAUSEA, #10 TAB 0 Refills Prov:DESEAN SOTO DNP, FNP-BC 02/18/18 Reported Medications Calcium Carbonate (CALCIUM) Unknown Strength Tablet, PO QDAY 10/13/18 Diflunisal (DIFLUNISAL) 500 Mg Tablet, 1 TAB PO QDAY, TAB 09/16/18 Exemestane (AROMASIN) 25 Mg Tab, 1 TAB PO QDAY, TAB 08/20/17 Switchback-3 Fatty Acids/Fish Oil (FISH OIL 1,000 MG CAPSULE) 1 Each Capsule, 1 CAP PO QDAY, CAPSULE 11/12/16 Cholecalciferol (Vitamin D3) (VITAMIN D-3) 2,000 Unit Capsule, 5000 UNIT PO DAILY, CAPSULE 05/20/16 Allergies: Coded Allergies: latex (Unverified Allergy, Intermediate, RASH, 12/05/18) Patient History: FH: Alzheimers disease Paternal Grandfather`, , Age:87 FH: cardiovascular disease FATHER, Age:71 FH: colon cancer Paternal Grandfather`, , Age:87, Onset:53 FH: myocardial infarction Maternal Grandfather, , Age:72 FH: obesity MOTHER, Age:71 FH: renal failure Paternal Grandmother, , Age:72 (Lao herbs for Trigeminal Neuralgia) FH: stroke Maternal Grandfather, , Age:72 FH: uterine cancer Maternal Grandmother, , Age:90, Onset:68 FHx: hypertension FATHER, Age:71 Paternal Grandfather`, , Age:87 Malignant neoplasm of gastrointestinal tract Polyps in the colon Review of Systems All Systems Reviewed/Normal: Yes, Except as Noted Constitutional: Fever, Chills Gastrointestinal: Nausea Exam General Appearance: Alert, Awake, No Acute Distress, Afebrile Neuro: No Gross deficits Eyes: PERRLA Chest: Other (bilateral mastectomy incisions are healing well without erythema or drainage. the right MÓNICA drain was removed in the emergency room 4 days ago when I removed the left drain yesterday in the clinic. The drain sites look good. There is erythema around the drain site on the right lower chest. There is also edema and tenderness to palpation.) Extremities: Warm, Perfused Psych: Alert & Oriented X3, Appropriate Mood & Affect Assessment and Plan Problems: (1) Cellulitis Status: Acute Assessment & Plan: 12/08/18: Will admit her to the hospital and start IV antibiotics. We'll broaden the coverage and include MRSA and so we'll treat her with Zosyn and vancomycin. We'll follow the area of cellulitis for improvement. We'll hydrate her with fluids but we'll let her have a regular diet. We will keep her on PPI and Lovenox for prophylaxis. The plan has been explained to the patient and she is agreeable with this plan. Condition Stable Time Spent: < 30 min Venous Thromboembolism VTE Risk Physician Assess for VTE Risk: Yes Patient's VTE Risk: Low VTE Diagnostic Test 2 Days Prior to Admit: No Antithrombotics Is Pt On Any Antithrombotics?: No Problem Qualifiers (1) Cellulitis: Site of cellulitis: trunk Site of cellulitis of trunk: chest wall Qualified Codes: L03.313 - Cellulitis of chest wall SCAR BOO MD Dec 08, 2018 11:06
[2018-12-08] MEDS: ONDANSETRON 4 MG/2 ML VIAL IVP PRN (11:47)
[2018-12-08] MEDS: NS(*) 0.9% 1000 ML BAG 1,000 ML IV PRN ×2 (11:47→23:34)
[2018-12-08 12:09] LABS: PLATELET COUNT, AUTOMATED 310 K/uL (150-450)
[2018-12-08] MEDS: PIPERACILLIN/TAZO*3.375GM VIAL 3.375 GM in NS(*) 0.9% 100 ML MINI-BAG 100 ML IVPB SCH ×3 (12:25→23:34)
[2018-12-08] MEDS ORDERED: VANCOMYCIN(*) 1 GM VIAL 2 GM in NS(*) 0.9% 500 ML BAG 500 ML IVPB ONE (13:00)
[2018-12-08 15:30] VITALS: BP 100/72
[2018-12-08 18:57] VITALS: BP 114/80
[2018-12-08] MEDS: ACETAMINOPHEN 325 MG TAB PO PRN (19:32)
[2018-12-08] MEDS: GABAPENTIN 300 MG CAP PO SCH (21:50)
[2018-12-08] MEDS: DOCUSATE SODIUM 100 MG CAP PO SCH (21:50)
[2018-12-08] MEDS: ZOLPIDEM TARTRATE 5 MG TAB PO PRN (22:06)
[2018-12-08 23:40] VITALS: BP 110/72
[2018-12-09] MEDS: VANCOMYCIN(*) 1 GM VIAL 1 GM, VANCOMYCIN (*) 0.5 GM VIAL 0.25 GM in NS(*) 0.9% 250 ML B... IVPB SCH ×2 (01:17→13:33)
[2018-12-09 04:32] VITALS: BP 118/74
[2018-12-09] MEDS: PIPERACILLIN/TAZO*3.375GM VIAL 3.375 GM in NS(*) 0.9% 100 ML MINI-BAG 100 ML IVPB SCH (05:35)
[2018-12-09 06:14] LABS: PLATELET COUNT, AUTOMATED 319 K/uL (150-450)
--- NOTE | 2018-12-09 06:52 | General Surgery Progress Note ---
Subjective Progress Notes Subjective No new complaints this morning. Still having mild fevers to 99F Physical Exam Vital Signs Date Time Temp Pulse Resp B/P (MAP) Pulse Ox O2 Delivery O2 Flow Rate FiO2 12/09/18 04:32 99.9 105 18 118/74 (89) 90 Room Air Intake and Output 12/09/18 07:00 Intake Total 1952.5 ml Balance 1952.5 ml Intake Oral 890 ml IV Total 1062.5 ml # Voids 1 General Appearance: Alert, Awake, No Acute Distress, Afebrile Chest: Other (Continued but improving erythema on right chest, cont'd edema, mild TTP. Bilateral chest incisions look good without drainage or dehiscence. No erythema on left chest surgery site. Drain sites are clean and dry.) Extremities: Warm, Perfused Result Diagram: 12/09/1860112/09/18601 Assessment and Plan Problems: (1) Cellulitis Status: Acute Assessment & Plan: 12/08/18: Will admit her to the hospital and start IV antibiotics. We'll broaden the coverage and include MRSA and so we'll treat her with Zosyn and vancomycin. We'll follow the area of cellulitis for improvement. We'll hydrate her with fluids but we'll let her have a regular diet. We will keep her on PPI and Lovenox for prophylaxis. The plan has been explained to the patient and she is agreeable with this plan. 12/09/18: Continued mild fevers. Creatinine up a little this morning. Will switch zosyn to ceftriaxone, continue vancomycin. Warm compresses to area. If no improvement by tomorrow then will get a CT chest to look for fluid collection(s). Condition Stable. Time Spent: < 30 min Exam Sepsis Risk: No Definite Risk Problem Qualifiers (1) Cellulitis: Site of cellulitis: trunk Site of cellulitis of trunk: chest wall Qualified Codes: L03.313 - Cellulitis of chest wall SCAR BOO MD Dec 09, 2018 06:52
[2018-12-09 07:14] VITALS: BP 122/76
[2018-12-09] MEDS: ACETAMINOPHEN 325 MG TAB PO PRN ×2 (07:32→21:35)
[2018-12-09] MEDS: DIFLUNISAL 500 MG TAB PO SCH (09:00)
[2018-12-09] MEDS: ENOXAPARIN 40 MG/0.4ML SYR SC SCH (09:00)
[2018-12-09] MEDS: DOCUSATE SODIUM 100 MG CAP PO SCH ×2 (09:00→21:00)
[2018-12-09] MEDS: OMEGA-3 500 MG CAP PO SCH (09:00)
[2018-12-09] MEDS: OLMESARTAN 20 MG TAB PO SCH (09:00)
[2018-12-09] MEDS: CHOLECALCIFEROL 1000 UNIT TAB PO SCH (09:03)
[2018-12-09] MEDS: PANTOPRAZOLE SOD 40 MG TABEC PO SCH (09:07)
[2018-12-09] MEDS: cefTRIAXone 2 GM VIAL IVP SCH (09:08)
[2018-12-09] MEDS: VENLAFAXINE XR 75 MG CAPCR PO SCH (09:08)
[2018-12-09] MEDS: KCL/D1/2NS 20 MEQ 1000 ML 1,000 ML IV SCH ×2 (09:26→18:28)
[2018-12-09] MEDS: EXEMESTANE 25 MG TAB PO SCH (09:29)
[2018-12-09 10:36] VITALS: Ht 167.6 cm; Wt 78.1 kg
[2018-12-09 10:54] VITALS: BP 114/77
[2018-12-09] MEDS ORDERED: IMIPENEM/CILASTA(*) 500MG VIAL 400 MG in NS(*) 0.9% 100 ML BAG 100 ML IVPB SCH (11:00)
[2018-12-09 21:24] VITALS: BP 147/95
[2018-12-09] MEDS: GABAPENTIN 300 MG CAP PO SCH (21:34)
[2018-12-09] MEDS: ZOLPIDEM TARTRATE 5 MG TAB PO PRN (21:34)
[2018-12-09 23:39] VITALS: BP 120/75
[2018-12-10] MEDS: VANCOMYCIN(*) 1 GM VIAL 1 GM, VANCOMYCIN (*) 0.5 GM VIAL 0.25 GM in NS(*) 0.9% 250 ML B... IVPB SCH ×2 (01:09→13:19)
[2018-12-10] MEDS: KCL/D1/2NS 20 MEQ 1000 ML 1,000 ML IV SCH ×3 (03:23→22:20)
[2018-12-10 03:26] VITALS: BP 131/71
[2018-12-10 05:50] LABS: PLATELET COUNT, AUTOMATED 324 K/uL (150-450)
[2018-12-10] MEDS: ACETAMINOPHEN 325 MG TAB PO PRN ×2 (06:25→16:23)
[2018-12-10] MEDS ORDERED: SUMAtriptan SUCC 25MG TAB PO ONE (07:00)
[2018-12-10] MEDS ORDERED: KETOROLAC 30 MG/ML VIAL IVP ONE (07:00)
[2018-12-10] MEDS ORDERED: [UNRECOGNIZED DRUG - OTHER] IVP ONE (07:00)
--- NOTE | 2018-12-10 07:06 | General Surgery Progress Note ---
Subjective Progress Notes Subjective She was feeling great last evening but this morning she's feeling much worse with a headache and nausea like when she "used to get migraines before menopause." Physical Exam Vital Signs Date Time Temp Pulse Resp B/P (MAP) Pulse Ox O2 Delivery O2 Flow Rate FiO2 12/10/18 06:26 99.4 12/10/18 03:26 89 18 131/71 (91) 90 Room Air Intake and Output 12/10/18 07:00 Intake Total 1932.5 ml Balance 1932.5 ml Intake Oral 670 ml IV Total 1262.5 ml # Voids 3 General Appearance: Alert, Awake, No Acute Distress, Afebrile Chest: Other (Persistent but mildly improving erythema. Area of fluctuance cephalad to incision. No drainage.) Result Diagram: 12/10/1838 12/10/1838 Assessment and Plan Problems: (1) Cellulitis Status: Acute Assessment & Plan: 12/08/18: Will admit her to the hospital and start IV antibiotics. We'll broaden the coverage and include MRSA and so we'll treat her with Zosyn and vancomycin. We'll follow the area of cellulitis for improvement. We'll hydrate her with fluids but we'll let her have a regular diet. We will keep her on PPI and Lovenox for prophylaxis. The plan has been explained to the patient and she is agreeable with this plan. 12/09/18: Continued mild fevers. Creatinine up a little this morning. Will switch zosyn to ceftriaxone, continue vancomycin. Warm compresses to area. If no improvement by tomorrow then will get a CT chest to look for fluid collection(s). 12/10/18: Will give sumatriptan, toradol, and caffeine for her headache. Will get U/S to look for drainable fluid collection in right mastectomy site. If present, will plan on draining this this afternoon. Continue IV abx and rest of current plan. Condition Stable. Time Spent: < 30 min Exam Sepsis Risk: No Definite Risk Problem Qualifiers (1) Cellulitis: Site of cellulitis: trunk Site of cellulitis of trunk: chest wall Qualified Codes: L03.313 - Cellulitis of chest wall SCAR BOO MD Dec 10, 2018 07:06
[2018-12-10 07:26] VITALS: BP 128/82
[2018-12-10] MEDS ORDERED: DEXTROSE 5% PO ONE (07:30)
[2018-12-10] MEDS ORDERED: [UNRECOGNIZED DRUG - OTHER] PO ONE (07:30)
[2018-12-10] MEDS: ENOXAPARIN 40 MG/0.4ML SYR SC SCH (09:00)
[2018-12-10] MEDS: DIFLUNISAL 500 MG TAB PO SCH (09:00)
[2018-12-10] MEDS: DOCUSATE SODIUM 100 MG CAP PO SCH ×3 (09:00→21:00)
[2018-12-10] MEDS: cefTRIAXone 2 GM VIAL IVP SCH (09:16)
[2018-12-10] MEDS: OMEGA-3 500 MG CAP PO SCH (09:17)
[2018-12-10] MEDS: CHOLECALCIFEROL 1000 UNIT TAB PO SCH (09:17)
[2018-12-10] MEDS: VENLAFAXINE XR 75 MG CAPCR PO SCH (09:17)
[2018-12-10] MEDS: OLMESARTAN 20 MG TAB PO SCH (09:17)
[2018-12-10] MEDS: PANTOPRAZOLE SOD 40 MG TABEC PO SCH (09:17)
[2018-12-10] MEDS: EXEMESTANE 25 MG TAB PO SCH (09:18)
--- NOTE | 2018-12-10 09:59 | RADIOLOGY IMAGING REPORT ---
FACILITY: [facility] - [place] PATIENT NAME: Tracy Avila : 1970 MR: [id number] V: [id number] EXAM DATE: ORDERING PHYSICIAN: SCAR BOO TECHNOLOGIST: Location: [facility] - [place] Patient: Tracy Avila : 1970 Visit/Account:[id number] Date of Sevice: 12/10/2018 Exam type: CHEST ultrasound History: History of bilateral mastectomy. Infection fever redness tender to touch anterior right jyots[address] wall Comparison: December 05, 2018. Findings: There is a slightly complex fluid collection just anterior to the chest wall measuring approximately 2 cm in AP dimension and is centered about the mastectomy scar. The collection measures approximatel y 11.1 x 1.9 x 6.6 cm in width. This fluid collection has accumulated since December 05, 2018 IMPRESSION: 1. Slightly complex fluid collection just anterior to the right chest wall which has accumulated sin ce December 05, 2018 as described above which is centered about the mastectomy scar. Given the clinical history this likely represents an abscess. Report Dictated By: Anne Geiger MD at 12/10/2018 9:37 AM Report E-Signed By: Anne Geiger MD at 12/10/2018 9:55 AM MILYN:MARY
[2018-12-10 10:57] VITALS: BP 148/98
[2018-12-10] MEDS: ONDANSETRON 4 MG/2 ML VIAL IVP PRN (11:06)
--- NOTE | 2018-12-10 13:50 | Pharmacy Note ---
Vancomycin Management Note Vanco Dosing Note Patient is on vancomycin for cellulitis/abscess, pharmacy monitoring and adjusting doses. Antimicrobials: Vancomycin 2000 mg load then 1.25 g every 12 hours, Day 3 Initially started on Zosyn but now on Rocephin IV Pertinent Lab Tests WHITE BLOOD COUNT 9.6 day 1 , now 6.0 NEUTROPHILS 81.8 on day 1, now 68.5 SCR 0.8 on day 1 now 1.10 VANCOMYCIN TROUGH 17.87 after 2 doses, 19.16 after 4 doses. Culture Results: BLOOD NGTD from culture started 12/05/18 as outpt Assessment: CrCl ~80 IBW ~ 90 AdjBW day 1, now ~65 ml/min AdjBW Renal function is worsening at this time. Vancomycin Monitoring Assessment: Goal Vancomycin Trough Level: 15-20 mcg/ml Plan: 1) Vancomycin dose: Reduce dose down to 1000 mg every 12 hours due to renal function 2) Vancomycin monitoring: A level will be ordered for 1 hour before the dose at 1300 on 12/11/18. Pharmacy will continue to monitor daily and adjust regimen as appropriate. JOSHUA HUSSEIN Dec 10, 2018 13:50
--- NOTE | 2018-12-10 14:05 | Pharmacy Note ---
Vancomycin Management Note Vanco Dosing Note Patient is on vancomycin for cellulitis of the breast (possible abscess), pharmacy monitoring and adjusting doses. Antimicrobials: Vancomycin 1.25 g every 12 hours, Day 3 of therapy Vancomycin Load of 2g IV x 1 on 12/08/18 @1400 Vancomycin maintenance dose of 1.25g IV Q12H Ceftriaxone 2g IV Q24H started on 12/09/18 Prior Abx: Augmentin as an outpatient for a few doses, Zosyn started on admis lin...received 4 doses Pertinent Lab Tests WHITE BLOOD COUNT 10.5-->6 NEUTROPHILS 81.8% --> 68.5% BLOOD UREA NITROGEN 13-->2 SCR 1-->1.2-->1.1 (poor oral intake, now on IV fluids) --> Toradol 12/10/18 x 1, Zosyn/Vanco combo--ATN possible VANCOMYCIN TROUGH 12/09-17.9, 12/10- .16 Culture Results: BLOOD Cx x 2 --> NGTD WOUND - Surgical site MÓNICA drain removed 12/05/18 no culture, US on 12/05 showed minimal post op fluid collection, 12/10 US showed 11.1 x 1.9 x 6.6 cm fluid collection, likely abscess Assessment: CrCl ~65 ml/min Renal function is variable, multiple insults to kidneys Vancomycin Monitoring Assessment: Goal Vancomycin Trough Level: 15-20 mcg/ml, for cellulitis troughs can be down to 10 mcg/mL--> likely an abscess, aim for 15-20 mcg/mL Plan: 1) Vancomycin dose: 1 g IV Q 12 hours 2) Vancomycin monitoring: A level will be ordered for 12/11/18- 1 hour before the 2nd dose (of 1g regimen)-- will be early. Pharmacy will continue to monitor daily and adjust regimen as appropriate. Will continue Ceftriaxone in addition to Vancomycin. Recent US showed possible abscess. Will watch for cultures and ID and Sens if drained. Renu Thomson, PharmD, BCOP RENU THOMSON Dec 10, 2018 14:05
[2018-12-10 14:46] VITALS: BP 158/97
--- NOTE | 2018-12-10 17:54 | Antimicrobial Stewardship ---
Antimicrobial Time Out Antimicrobial Stewardship MD Service: Other Indications: Cellulitis Antimicrobial Used Zosyn 3.375g 12/08 - 12/09 Vanco 2g load 12/08 1400 x1 dose Vanco 1.25g Q12h 12/09-12/10 Vanco 1g Q12h starting 12/11 Ceftriaxone 2g ivpush Q24h started 12/09 Start Date: Dec 08, 2018 Culture Results: No Eligible for PO Conversion Eligable for PO Conversion: No (febrile) Reviewed with Provider Reviewed w/ Provider on Rounds: No Comments Comments Patient is sp breast implant removal and mastectomy revision. Developed signs of infection and failed subsequent outpatient therapy of Augmentin. Admitted and started on Vanco and Zosyn. Later transitioned to Vanco and Ceftriaxone. Blood cultures from 12/05 remained negative for growth. Patient has continued to have fevers (Tmax 100.1 12/10). Continue coverage and follow clinical improvement. Not candidate for oral conversion until afebrile. KEYA ALBERTO Dec 10, 2018 17:54
--- NOTE | 2018-12-10 19:15 | Gen Surgery H&P BLANK ---
GENERAL SURGERY H&P BLANK Percutaneous 14F pigtail drain placed in right subcutaneous postop fluid colle ction using sterile seldinger technique. 120mL yellow clear fluid evacuated and some sent for cultures. Pt tolerated the procedure without issues. SCAR BOO MD Dec 10, 2018 19:15
[2018-12-10 19:28] VITALS: BP 143/89
[2018-12-10] MEDS: traMADol 50 MG TAB PO PRN (20:08)
[2018-12-10] MEDS: GABAPENTIN 300 MG CAP PO SCH (20:35)
[2018-12-10] MEDS: ZOLPIDEM TARTRATE 5 MG TAB PO PRN (20:36)
[2018-12-10 22:39] VITALS: BP 149/90
[2018-12-11] MEDS ORDERED: VANCOMYCIN(*) 1 GM VIAL 1 GM in NS(*) 0.9% 250 ML BAG 250 ML IVPB SCH (01:00)
[2018-12-11] MEDS: traMADol 50 MG TAB PO PRN ×3 (04:25→16:35)
[2018-12-11 04:30] VITALS: BP 138/88
[2018-12-11] MEDS: ACETAMINOPHEN 325 MG TAB PO PRN ×2 (04:31→16:36)
[2018-12-11 06:11] LABS: PLATELET COUNT, AUTOMATED 336 K/uL (150-450)
[2018-12-11] MEDS ORDERED: POTASSIUM CHL 20 MEQ TABCR PO ONE (07:40)
--- NOTE | 2018-12-11 08:20 | General Surgery Progress Note ---
Subjective Progress Notes Subjective No new complaints this morning. She's been getting headaches and she's wondering if this could be due to the antibiotics. Physical Exam Vital Signs Date Time Temp Pulse Resp B/P (MAP) Pulse Ox O2 Delivery O2 Flow Rate FiO2 12/11/18 07:41 99.1 12/11/18 05:35 95 Nasal Cannula 2.0 12/11/18 04:30 97 18 138/88 (105) Intake and Output 12/11/18 07:00 Intake Total 4130 ml Output Total 100 ml Balance 4030 ml Intake Oral 1880 ml IV Total 2250 ml Output Drainage Total 100 ml # Voids 5 # Bowel Movements 3 General Appearance: Alert, Awake, No Acute Distress, Afebrile Chest: Other (Continued erythema in right chest. Drain with decreasing serous fluid.) Extremities: Warm, Perfused Result Diagram: 12/11/18 0534 12/11/18533 Assessment and Plan Problems: (1) Cellulitis Status: Acute Assessment & Plan: 12/08/18: Will admit her to the hospital and start IV antibiotics. We'll broaden the coverage and include MRSA and so we'll treat her with Zosyn and vancomycin. We'll follow the area of cellulitis for improvement. We'll hydrate her with fluids but we'll let her have a regular diet. We will keep her on PPI and Lovenox for prophylaxis. The plan has been explained to the patient and she is agreeable with this plan. 12/09/18: Continued mild fevers. Creatinine up a little this morning. Will switch zosyn to ceftriaxone, continue vancomycin. Warm compresses to area. If no improvement by tomorrow then will get a CT chest to look for fluid collection(s). 12/10/18: Will give sumatriptan, toradol, and caffeine for her headache. Will get U/S to look for drainable fluid collection in right mastectomy site. If present, will plan on draining this this afternoon. Continue IV abx and rest of current plan. 12/11/18: Drain placed in right chest wall fluid collection. Serous, nonpurulent, fluid evacuated. Gram stain without bacteria and cultures negative so far. Continue current abx regimen. Will as hospitalist service to consult since she's having persistent fevers to see if they have other recommendations on antibiotic coverage. Condition Stable. Time Spent: < 30 min Exam Sepsis Risk: No Definite Risk Problem Qualifiers (1) Cellulitis: Site of cellulitis: trunk Site of cellulitis of trunk: chest wall Qualified Codes: L03.313 - Cellulitis of chest wall SCAR BOO MD Dec 11, 2018 08:20
[2018-12-11] MEDS: DOCUSATE SODIUM 100 MG CAP PO SCH ×2 (09:00→20:58)
[2018-12-11] MEDS: DIFLUNISAL 500 MG TAB PO SCH (09:00)
[2018-12-11 09:19] VITALS: BP 115/76
[2018-12-11] MEDS: VENLAFAXINE XR 75 MG CAPCR PO SCH (09:24)
[2018-12-11] MEDS: CHOLECALCIFEROL 1000 UNIT TAB PO SCH (09:24)
[2018-12-11] MEDS: OLMESARTAN 20 MG TAB PO SCH (09:24)
[2018-12-11] MEDS: PANTOPRAZOLE SOD 40 MG TABEC PO SCH (09:24)
[2018-12-11] MEDS: OMEGA-3 500 MG CAP PO SCH (09:24)
[2018-12-11] MEDS: EXEMESTANE 25 MG TAB PO SCH (09:25)
[2018-12-11] MEDS: ENOXAPARIN 40 MG/0.4ML SYR SC SCH (09:26)
[2018-12-11] MEDS: cefTRIAXone 2 GM VIAL IVP SCH (09:29)
[2018-12-11] MEDS: KCL/D1/2NS 20 MEQ 1000 ML 1,000 ML IV SCH ×2 (09:29→20:40)
[2018-12-11 11:20] VITALS: BP 126/86
--- NOTE | 2018-12-11 12:35 | Hospitalist Consultation ---
History of Present Illness Requesting Physician Dr. Boo Reason for Consult Fever, Antibiotics Chief Complaint Continued fever with antibiotic treatment History of Present Illness She was admitted 12 days status post left breast implant removal and bilateral mastectomy revision. She was doing well until 4 days prior to admission, when she started feeling increasing pain and swelling in her right chest. This was down by one of the drains. She also experienced redness and was started on Augmentin but she felt like she was getting worse and went into the emergency room. She was given Rocephin and an ultrasound did not reveal any postoperative fluid collections. Dr. Boo saw her in office 12/07/18 and she felt poor and she was given 2 L of crystalloid and was sent home. She then reported feeling worse, with increased pain and redness in her right chest. She was directly admitted by Dr. Boo for IV antibiotics, as she failed outpatient therapy. Since admission, she was started on Vancomycin and Zosyn, but then started to have elevated creatinine, so she was switched to Vancomycin and Rocephin. She has difficulty eating, secondary to decreased appetite. She continues to have fever and has c/o headache. History Problems: (1) Hypertension Status: Chronic (2) Breast cancer Status: Chronic (3) Vitamin D deficiency Onset Date: 01/03/2015 Status: Chronic Home Meds Active Scripts Ondansetron 4 Mg Odt (ONDANSETRON 4 MG ODT) 4 Mg Tab.rapdis, 1 TAB PO TID PRN for NAUSEA, #20 TAB 0 Refills Prov:SCAR BOO MD 12/07/18 Zolpidem Tartrate (AMBIEN) 5 Mg Tablet, 1 TAB PO QHS PRN for INSOMNIA, #30 TAB 0 Refills Prov:DESEAN SOTO DNP, FNP-BC 11/04/18 Venlafaxine Hcl (EFFEXOR XR) 75 Mg Cap.er.24h, 75 MG PO QDAY, #90 TAB 1 Refill Prov:DESEAN SOTO DNP, FNP-BC 10/20/18 Olmesartan Medoxomil (BENICAR) 20 Mg Tablet, 1 TAB PO QDAY, #90 TAB 3 Refills Prov:DESEAN SOTO DNP, FNP-BC 09/16/18 Omeprazole (OMEPRAZOLE) 40 Mg Capsule.dr, 40 MG PO QDAY for 90 Days, #90 CAP 1 Refill Prov:DESEAN SOTO DNP, [facility] 06/09/18 Gabapentin (GABAPENTIN) 300 Mg Capsule, 3 CAP PO QHS for neuropathy, #90 CAPSULE 11 Refills Prov:DESEAN SOTO DNP, [facility] 03/11/18 Ondansetron (ZOFRAN ODT) 8 Mg Tab.rapdis, 1 TAB PO Q12H PRN for NAUSEA, #10 TAB 0 Refills Prov:DESEAN SOTO DNP, [facility] 02/18/18 Reported Medications Acetaminophen (TYLENOL EXTRA STRENGTH) 500 Mg Tablet, 2 TAB PO Q6H, TAB 12/08/18 Ibuprofen (IBUPROFEN) 600 Mg Tablet, 1 TAB PO Q6H, TAB 12/08/18 Calcium Carbonate (CALCIUM) Unknown Strength Tablet, 600 MG PO QDAY 10/13/18 Diflunisal (DIFLUNISAL) 500 Mg Tablet, 1 TAB PO QDAY, TAB 09/16/18 Exemestane (AROMASIN) 25 Mg Tab, 1 TAB PO QDAY, TAB 08/20/17 [place]-3 Fatty Acids/Fish Oil (FISH OIL 1,000 MG CAPSULE) 1 Each Capsule, 1 CAP PO QDAY, CAPSULE 11/12/16 Cholecalciferol (Vitamin D3) (VITAMIN D-3) 2,000 Unit Capsule, 5000 UNIT PO DAILY, CAPSULE 05/20/16 Discontinued Scripts Ondansetron Hcl In 0.9 % Nacl (ONDANSETRON-NS 8 MG/50 ML BAG) 8 Mg/50 Ml Piggyback, 4 MG IV ONCE, #4 MG 0 Refills Prov:SCAR BOO MD 12/07/18 Oxycodone Hcl/Acetaminophen (PERCOCET 5-325 MG TABLET) 1 Each Tablet, 1 EACH PO Q4H PRN for PAIN, #12 TAB 0 Refills Prov:VERONIKA HARRISON MD 12/05/18 Docusate Sodium (COLACE) 100 Mg Capsule, 1 CAP PO BID, #30 CAPSULE 0 Refills Prov:SCAR BOO MD 11/26/18 Oxycodone Hcl/Acet 5/325 Mg (ENDOCET 5-325 TABLET) 1 Each Tablet, 1 TAB PO Q4H PRN for PAIN, #20 TAB 0 Refills Prov:SCAR BOO MD 11/26/18 Allergies: Coded Allergies: latex (Unverified Allergy, Intermediate, RASH, 12/05/18) Patient History: FH: Alzheimers disease Paternal Grandfather`, , Age:87 FH: cardiovascular disease FATHER, Age:71 FH: colon cancer Paternal Grandfather`, , Age:87, Onset:53 FH: myocardial infarction Maternal Grandfather, , Age:72 FH: obesity MOTHER, Age:71 FH: renal failure Paternal Grandmother, , Age:72 (Vietnamese herbs for Trigeminal Neuralgia) FH: stroke Maternal Grandfather, , Age:72 FH: uterine cancer Maternal Grandmother, , Age:90, Onset:68 FHx: hypertension FATHER, Age:71 Paternal Grandfather`, , Age:87 Malignant neoplasm of gastrointestinal tract Polyps in the colon Hx Smoking: No Smoking Status: Never Smoker Exposure to Second Hand Smoke?: No Caffeine Intake: Coffee, Soda Caffeine/Cups Per Day: 2 PER DAY Hx Alcohol Use: Yes Hx Substance Use Disorder: No Social Drug Use: Never Review of Systems All Systems Reviewed/Normal: Yes, Except as Noted Neurological: Other (headache) Eyes: Photophobia Respiratory: Cough Exam Vital Signs Vital Signs Date Time Temp Pulse Resp B/P (MAP) Pulse Ox O2 Delivery O2 Flow Rate FiO2 12/11/18 11:20 80 16 126/86 (99) 96 Nasal Cannula 1.0 12/11/18 09:19 99.1 General Appearance: Alert, Awake, No Acute Distress, Afebrile ENT: Other (photophobia) Cardiovascular: Regular Rate and Rhythm Respiratory: No Respiratory Distress, Clear to Auscultation GI: Abd Soft and Non-Tender Extremities: Warm, Perfused; No Edema Psych: Alert & Oriented X3, Appropriate Mood & Affect Medical Decision Making Data Points Result Diagram: 12/11/1853312/11/1834 Assessment and Plan Problems: (1) Fever Status: Acute Assessment & Plan: She is currently on Vancomycin and Rocephin for presumed chest infection. She will get Chest X-ray, repeat blood cultures, Lactate, and urine culture. If these are negative, will consider ordering echocardiogram. (2) Migraine Status: Acute Assessment & Plan: She has frontal and right orbital migraine. She had history of migraines, which were associated with hormones. She is receiving Tramadol, which seems to be helping pain. Continue to monitor. (3) Elevated serum creatinine Status: Acute Assessment & Plan: Creatinine upon admission 0.8, elevated to 1.2 with Zosyn. Changed to Rocephin, creatinine maintaining 1.1 with IVF. Venous Thromboembolism Antithrombotics Is Pt On Any Antithrombotics?: Yes Exam Sepsis Risk: No Definite Risk DANILO MOSES CEMENT LOADER Dec 11, 2018 12:35
--- NOTE | 2018-12-11 14:10 | RADIOLOGY IMAGING REPORT ---
FACILITY: [facility] PATIENT NAME: Tracy Avila : 1970 MR: [id number] V: [id number] EXAM DATE: ORDERING PHYSICIAN: DANILO MOSES TECHNOLOGIST: Location: [facility] - [place] Patient: Tracy Avila : 1970 Visit/Account:[id number] Date of Sevice: 12/11/2018 Study: Single portable view of the chest. Indication: Cough and fever Comparison study: None. Technique: Single AP portable chest demonstrates the presence of a pigtail catheter within the right hemithorax. The pigtail overlies the hilum. There is no evidence of acute infiltrate. There is no evidence of pleural effusion or pneumothorax. IMPRESSION: Pigtail catheter present within the right hemithorax. No evidence of acute abnormality. Report Dictated By: Chad Gallegos at 12/11/2018 2:02 PM Report E-Signed By: Chad Gallegos at 12/11/2018 2:06 PM WSN:[id number]
[2018-12-11 16:28] VITALS: BP 128/79
[2018-12-11] MEDS: BENZONATATE 100 MG CAP PO PRN (16:35)
[2018-12-11] MEDS: CLINDAMYCIN(*) 600 MG/NS 50 ML 50 ML IVPB SCH (16:36)
[2018-12-11] MEDS: ONDANSETRON 4 MG/2 ML VIAL IVP PRN (17:10)
[2018-12-11] MEDS: PROMETHAZINE 25 MG/ML 1 ML AMP IVP PRN (18:44)
[2018-12-11 19:52] VITALS: BP 115/74
[2018-12-11] MEDS: GABAPENTIN 300 MG CAP PO SCH (20:42)
[2018-12-11] MEDS ORDERED: DIAZEPAM 5 MG TAB PO ONE (21:00)
[2018-12-11] MEDS ORDERED: KETOROLAC 15 MG/ML VIAL IVP ONE (21:00)
[2018-12-11] MEDS ORDERED: diphenhydrAMINE 25 MG CAP PO ONE (21:00)
[2018-12-12] MEDS: CLINDAMYCIN(*) 600 MG/NS 50 ML 50 ML IVPB SCH ×3 (00:39→19:16)
[2018-12-12] MEDS: BENZONATATE 100 MG CAP PO PRN ×3 (01:58→22:31)
[2018-12-12] MEDS: PROMETHAZINE 25 MG/ML 1 ML AMP IVP PRN (06:09)
[2018-12-12] MEDS: ACETAMINOPHEN 325 MG TAB PO PRN ×3 (06:09→23:36)
[2018-12-12] MEDS: traMADol 50 MG TAB PO PRN ×3 (06:09→23:36)
[2018-12-12 06:18] LABS: PLATELET COUNT, AUTOMATED 374 K/uL (150-450)
[2018-12-12 06:51] VITALS: BP 135/85
[2018-12-12] MEDS: KCL/D1/2NS 20 MEQ 1000 ML 1,000 ML IV SCH ×2 (07:21→19:20)
--- NOTE | 2018-12-12 08:55 | General Surgery Progress Note ---
Subjective Progress Notes Subjective Feels generally poorly, continued fevers. Physical Exam Vital Signs Date Time Temp Pulse Resp B/P (MAP) Pulse Ox O2 Delivery O2 Flow Rate FiO2 12/12/18 07:47 94 Nasal Cannula 2.0 12/12/18 06:51 101.3 101 16 135/85 (102) Intake and Output 12/12/18 07:00 Intake Total 2006 ml Output Total 640 ml Balance 1366 ml Intake Oral 1000 ml IV Total 1006 ml Output Urine Total 400 ml Emesis 200 ml Drainage Total 40 ml # Voids 1 General Appearance: Alert, Awake, No Acute Distress, Afebrile Chest: Other (Continued erythema in right chest skin. Serous fluid in drain bag, 40mL overnight.) Extremities: Warm, Perfused Result Diagram: 12/12/1854012/12/18540 Assessment and Plan Problems: (1) Cellulitis Status: Acute Assessment & Plan: 12/08/18: Will admit her to the hospital and start IV antibiotics. We'll broaden the coverage and include MRSA and so we'll treat her with Zosyn and vancomycin. We'll follow the area of cellulitis for improvement. We'll hydrate her with fluids but we'll let her have a regular diet. We will keep her on PPI and Lovenox for prophylaxis. The plan has been explained to the patient and she is agreeable with this plan. 12/09/18: Continued mild fevers. Creatinine up a little this morning. Will switch zosyn to ceftriaxone, continue vancomycin. Warm compresses to area. If no improvement by tomorrow then will get a CT chest to look for fluid collection(s). 12/10/18: Will give sumatriptan, toradol, and caffeine for her headache. Will get U/S to look for drainable fluid collection in right mastectomy site. If present, will plan on draining this this afternoon. Continue IV abx and rest of current plan. 12/11/18: Drain placed in right chest wall fluid collection. Serous, nonpurulent, fluid evacuated. Gram stain without bacteria and cultures negative so far. Continue current abx regimen. Will as hospitalist service to consult since she's having persistent fevers to see if they have other recommendations on antibiotic coverage. 12/12/18: Continue cellulitis and fevers. Hospitalist Service consulted, they have altered antibiotic coverage. Will get CT chest today to look for undrained fluid/abscess. If no better by tomorrow morning, may need to phone consult with ID. May also need to consider yeast coverage. Condition Stable. Time Spent: < 30 min Exam Sepsis Risk: Sepsis Risk Problem Qualifiers (1) Cellulitis: Site of cellulitis: trunk Site of cellulitis of trunk: chest wall Qualified Codes: L03.313 - Cellulitis of chest wall SCAR BOO MD Dec 12, 2018 08:55
[2018-12-12] MEDS: DOCUSATE SODIUM 100 MG CAP PO SCH ×2 (09:00→21:13)
[2018-12-12] MEDS: DIFLUNISAL 500 MG TAB PO SCH (09:00)
[2018-12-12] MEDS ORDERED: IOPAMIDOL 76% 150 ML INFUS BTL 150 ML ONE (09:07)
[2018-12-12] MEDS: VENLAFAXINE XR 75 MG CAPCR PO SCH (09:34)
[2018-12-12] MEDS: CHOLECALCIFEROL 1000 UNIT TAB PO SCH (09:34)
[2018-12-12] MEDS: ENOXAPARIN 40 MG/0.4ML SYR SC SCH (09:34)
[2018-12-12] MEDS: PANTOPRAZOLE SOD 40 MG TABEC PO SCH (09:34)
[2018-12-12] MEDS: OMEGA-3 500 MG CAP PO SCH (09:35)
[2018-12-12] MEDS: EXEMESTANE 25 MG TAB PO SCH (09:36)
[2018-12-12] MEDS: cefTRIAXone 2 GM VIAL IVP SCH (09:41)
[2018-12-12 11:35] VITALS: BP 121/83
--- NOTE | 2018-12-12 13:32 | Hospitalist Progress Note ---
Subjective Progress Notes Subjective She had a fever to 101.3 this morning. She felt a bit cold, but noticed a headache. Drinking fluids well. No localizing symptoms. Physical Exam Vital Signs Date Time Temp Pulse Resp B/P (MAP) Pulse Ox O2 Delivery O2 Flow Rate FiO2 12/12/18 11:35 99.7 92 16 121/83 (96) 93 Nasal Cannula 1.5 Intake and Output 12/12/18 07:00 Intake Total 2006 ml Output Total 640 ml Balance 1366 ml Intake Oral 1000 ml IV Total 1006 ml Output Urine Total 400 ml Emesis 200 ml Drainage Total 40 ml # Voids 1 General Appearance: Alert, Awake, No Acute Distress Result Diagram: 12/12/18 0541 12/12/18540 Assessment and Plan Problems: (1) Fever Status: Acute Assessment & Plan: She was on Vancomycin and Rocephin for presumed chest infection. Switched to Rocephin and Clindamycin on 12/12. Still having fevers. Chest X-ray clear, repeat blood cultures pending, Lactate normal, and UA wnl. Chest CT today. (2) Migraine Status: Acute Assessment & Plan: She has frontal and right orbital migraine. She had history of migraines, which were associated with hormones. She is receiving Tramadol, which seems to be helping pain. Continue to monitor. (3) Elevated serum creatinine Status: Acute Assessment & Plan: Creatinine upon admission 0.8, elevated to 1.2 with Zosyn/Vancomycin. Antibiotics changed as above. Creatinine maintaining at 1.2. Will stop Olmesartan and Toradol. Continue the IVF secondary to getting CT with contrast. Follow. (4) HTN (hypertension) Status: Chronic Assessment & Plan: Holding olmesartan, see above, and will use clonidine prn. Exam Sepsis Risk: Sepsis Risk MAURICE FINE MD Dec 12, 2018 13:32
[2018-12-12 15:25] VITALS: BP 137/88
--- NOTE | 2018-12-12 17:07 | RADIOLOGY IMAGING REPORT ---
[place] [facility] [place] Tracy Avila : 1970 MR: [id number] V: [id number] EXAM DATE: ORDERING PHYSICIAN: SCAR BOO TECHNOLOGIST: Location: [facility] - [place] Patient: Tracy Avila : 1970 Visit/Account:[id number] Date of Sevice: 12/12/2018 EXAMINATION: CT chest with IV contrast HISTORY: Right chest wall cellulitis, fever, drainage tube in right chest. TECHNIQUE: Axial CT images of the chest were obtained with IV contrast, with coronal and sagittal 2 D reconstructed images. One of the following dose optimization techniques was utilized in the performance of this exam: Autom ated exposure control; adjustment of the mA and/or kV according to the patient's size; or use of an i terative reconstruction technique. Specific details can be referenced in the facility's radiology C T exam operational policy. Contrast: 75 mL of IV Isovue-370. COMPARISON: Chest wall ultrasound 12/10/2018 and 12/05/2018. CTA chest with contrast 05/05/2014. FINDINGS: Lungs and pleura: Small bilateral layering pleural effusions with mild atelectasis in the lung bases . There is mild fibrotic appearing subpleural reticular opacity along the anterior right lung which may relate to prior radiation therapy. There is mild interlobular septal thickening in the mid and u pper left lung which is nonspecific but could relate to mild interstitial edema. Calcified granuloma in the lingula. No suspicious focal consolidation. The central airways are patent. No pneumothora x. Mediastinum and tomas: Negative. Heart, aorta, and great vessels: Normal caliber thoracic aorta. Normal heart size. No pericardial effusion. Chest lymph node assessment: No enlarged lymph nodes in the chest. Bones: No acute osseous findings or suspicious focal osseous lesions in the chest. Normal alignment along the thoracic spine. Chest wall: Surgical changes of bilateral mastectomy. There is a crescentic fluid collection along the anterior right chest wall with a percutaneous drain present within the medial aspect of the colle ction. The collection measures up to 1.2 cm in maximal thickness laterally, partially improved from the recent prior ultrasound when it previously measured up to 1.9 cm in thickness. The collection me asures up to 11.3 cm in width and approximately 10 cm in craniocaudal length. Single punctate bubble of gas in the collection. There is some skin thickening and mild subcutaneous stranding along the c hest wall bilaterally which could relate to cellulitis and/or postsurgical/postradiation change. The re is an additional small linear collection along the upper left chest wall between the pectoralis ma héctor and minor muscles, measuring 0.6 cm in thickness and approximately 4.5 cm in length. No internal air bubbles. No evidence of any other undrained fluid collection or abscess along the chest wall. No soft tissue gas. Lower neck: Negative. Upper abdomen: Negative. IMPRESSION: 1. Percutaneous drain present within a crescentic fluid collection along the anterior right chest wa ll. This measures up to 1.2 cm in maximal thickness, decreased in size from the recent prior ultraso und. 2. There is skin thickening and subcutaneous stranding along the chest wall which is nonspecific. T his could be due to cellulitis or postsurgical/postradiation change. 3. Additional small nonspecific linear fluid collection along the upper left chest wall between the pectoralis major and minor muscles. 4. Small layering pleural effusions with adjacent atelectasis in the lung bases. 5. Subpleural reticular change along the anterior aspect of the right lung likely relates to prior r adiation. There is some nonspecific mild interlobular septal thickening in the left lung. Report Dictated By: Tyler Alcala MD at 12/12/2018 4:36 PM Report E-Signed By: Tyler Alcala MD at 12/12/2018 5:03 PM WSN:[id number]
[2018-12-12 18:54] VITALS: BP 134/91
[2018-12-12] MEDS: GABAPENTIN 300 MG CAP PO SCH (21:14)
[2018-12-12 23:03] VITALS: BP 136/83
[2018-12-12] MEDS: ZOLPIDEM TARTRATE 5 MG TAB PO PRN (23:49)
[2018-12-13 02:52] VITALS: BP 112/67
[2018-12-13] MEDS: CLINDAMYCIN(*) 600 MG/NS 50 ML 50 ML IVPB SCH ×3 (02:56→19:26)
[2018-12-13 05:53] LABS: PLATELET COUNT, AUTOMATED 416 K/uL (150-450)
[2018-12-13] MEDS: KCL/D1/2NS 20 MEQ 1000 ML 1,000 ML IV SCH ×2 (05:59→17:48)
[2018-12-13 06:43] VITALS: BP 122/76
[2018-12-13] MEDS: DIFLUNISAL 500 MG TAB PO SCH (09:00)
[2018-12-13] MEDS: DOCUSATE SODIUM 100 MG CAP PO SCH ×2 (09:00→21:00)
[2018-12-13] MEDS: ENOXAPARIN 40 MG/0.4ML SYR SC SCH (09:24)
[2018-12-13] MEDS: VENLAFAXINE XR 75 MG CAPCR PO SCH (09:25)
[2018-12-13] MEDS: BENZONATATE 100 MG CAP PO PRN ×2 (09:25→19:25)
[2018-12-13] MEDS: cefTRIAXone 2 GM VIAL IVP SCH (09:25)
[2018-12-13] MEDS: OMEGA-3 500 MG CAP PO SCH (09:25)
[2018-12-13] MEDS: PANTOPRAZOLE SOD 40 MG TABEC PO SCH (09:26)
[2018-12-13] MEDS: CHOLECALCIFEROL 1000 UNIT TAB PO SCH (09:26)
[2018-12-13] MEDS: EXEMESTANE 25 MG TAB PO SCH (09:27)
--- NOTE | 2018-12-13 10:12 | General Surgery Progress Note ---
Subjective Progress Notes Subjective No new complaints. Still having mild fevers. Chest wall pain is gone. Feels some abdominal bloating but still passing flatus. Physical Exam Vital Signs Date Time Temp Pulse Resp B/P (MAP) Pulse Ox O2 Delivery O2 Flow Rate FiO2 12/13/18 06:43 99.5 86 16 122/76 (91) 91 Nasal Cannula 1.0 Intake and Output 12/13/18 07:00 Intake Total 4067 ml Output Total 35 ml Balance 4032 ml Intake Oral 1080 ml IV Total 2987 ml Drainage Total 35 ml # Voids 3 General Appearance: Alert, Awake, No Acute Distress, Afebrile Chest: Other (Drain removed as it hasn't put but a couple mL of serous fluid out all night long. Erythema on chest is dissipating.) GI: Soft and Non-Tender Extremities: Warm, Perfused Result Diagram: 12/13/18 0508 12/13/18 0508 Assessment and Plan Problems: (1) Cellulitis Status: Acute Assessment & Plan: 12/08/18: Will admit her to the hospital and start IV antibiotics. We'll broaden the coverage and include MRSA and so we'll treat her with Zosyn and vancomycin. We'll follow the area of cellulitis for improvement. We'll hydrate her with fluids but we'll let her have a regular diet. We will keep her on PPI and Lovenox for prophylaxis. The plan has been explained to the patient and she is agreeable with this plan. 12/09/18: Continued mild fevers. Creatinine up a little this morning. Will switch zosyn to ceftriaxone, continue vancomycin. Warm compresses to area. If no improvement by tomorrow then will get a CT chest to look for fluid collection(s). 12/10/18: Will give sumatriptan, toradol, and caffeine for her headache. Will get U/S to look for drainable fluid collection in right mastectomy site. If present, will plan on draining this this afternoon. Continue IV abx and rest of current plan. 12/11/18: Drain placed in right chest wall fluid collection. Serous, nonpurulent, fluid evacuated. Gram stain without bacteria and cultures negative so far. Continue current abx regimen. Will as hospitalist service to consult since she's having persistent fevers to see if they have other recommendations on antibiotic coverage. 12/12/18: Continue cellulitis and fevers. Hospitalist Service consulted, they have altered antibiotic coverage. Will get CT chest today to look for undrained fluid/abscess. If no better by tomorrow morning, may need to phone consult with ID. May also need to consider yeast coverage. 12/13/18: Improving cellulitis but continued low grade fevers. Discussed with Hospitalist...fevers may be related to antibiotics. Chest CT yesterday didn't reveal any significant fluid collections or other abnormalities to explain her fevers. Hospitalist recommends continued current antibiotic regimen and letting her recover from the vancomycin and zosyn which were stopped 2 days ago. Cellulitis is improving, will stop abx when resolves and then will see how she feels after we're able to stop all abx. Pigtail catheter removed today due to scant nonpurulent drainage. Condition Stable. Time Spent: < 30 min Exam Sepsis Risk: No Definite Risk Problem Qualifiers (1) Cellulitis: Site of cellulitis: trunk Site of cellulitis of trunk: chest wall Qualified Codes: L03.313 - Cellulitis of chest wall SCAR BOO MD Dec 13, 2018 10:12
[2018-12-13 11:49] VITALS: BP 148/88
[2018-12-13] MEDS: ACETAMINOPHEN 325 MG TAB PO PRN ×3 (11:56→21:43)
--- NOTE | 2018-12-13 12:49 | Hospitalist Progress Note ---
Subjective Progress Notes Subjective Still some low grade temps. WBC count is normal, but a relative increase in eosinophils. She reports some cough/no sputum. Physical Exam Vital Signs Date Time Temp Pulse Resp B/P (MAP) Pulse Ox O2 Delivery O2 Flow Rate FiO2 12/13/18 11:49 100.8 88 16 148/88 (108) 91 Nasal Cannula 1.0 Intake and Output 12/13/18 07:00 Intake Total 4067 ml Output Total 35 ml Balance 4032 ml Intake Oral 1080 ml IV Total 2987 ml Drainage Total 35 ml # Voids 3 General Appearance: Alert, Awake Respiratory: Clear to Auscultation (no rales or wheezes noted) Chest: Other (right anterior incision dressed (drain removed)/some erythema is noted at edges of dressing) Integumentary: Other (no other rashes noted) Result Diagram: 12/13/18 0508 12/13/18 0508 Assessment and Plan Problems: (1) Fever Status: Acute Assessment & Plan: She was on IV Vancomycin and Zosyn for presumed chest wall infection. Switched to Rocephin and Clindamycin on 12/12. Still having low gr shikha temps. Chest X-ray clear, repeat blood cultures negative thus far, Lactate normal, and UA unremarkable. Chest CT shows surgical site findings with possible cellulitis vs. surgical vs. radiation changes. Question if the temps may be related to possible drug reaction (increased eosinophils/creatinine). No change at this time. Watch labs closely. (2) Migraine Status: Acute Assessment & Plan: She has frontal and right orbital migraine. She had history of migraines, which were associated with hormones. She is receiving Tramadol, which seems to be helping pain. Continue to monitor. (3) Elevated serum creatinine Status: Acute Assessment & Plan: Creatinine upon admission 0.8, elevated to 1.2 with Zosyn/Vancomycin. Antibiotics changed as above. Creatinine maintaining at 1.3. We also stopped Olmesartan and Toradol. Continue the IVF secondary to getting CT with contrast. Follow. (4) HTN (hypertension) Status: Chronic Assessment & Plan: Holding olmesartan, see above, and will use clonidine prn. Exam Sepsis Risk: No Definite Risk BREANNA GODDARD MD Dec 13, 2018 12:49
[2018-12-13] MEDS: traMADol 50 MG TAB PO PRN ×2 (17:48→21:48)
[2018-12-13 19:30] VITALS: BP 152/94
[2018-12-13] MEDS: cloNIDine HCL 0.1 MG TAB PO PRN (19:36)
[2018-12-13] MEDS: ZOLPIDEM TARTRATE 5 MG TAB PO PRN (21:43)
[2018-12-13] MEDS: GABAPENTIN 300 MG CAP PO SCH (21:43)
[2018-12-13 23:06] VITALS: BP 142/85
[2018-12-14 02:36] VITALS: BP 160/100
[2018-12-14] MEDS: CLINDAMYCIN(*) 600 MG/NS 50 ML 50 ML IVPB SCH ×3 (03:21→19:15)
[2018-12-14] MEDS: BENZONATATE 100 MG CAP PO PRN ×2 (03:28→13:35)
[2018-12-14] MEDS: cloNIDine HCL 0.1 MG TAB PO PRN ×2 (03:33→15:53)
[2018-12-14] MEDS: KCL/D1/2NS 20 MEQ 1000 ML 1,000 ML IV SCH ×2 (04:49→15:54)
[2018-12-14 05:53] LABS: PLATELET COUNT, AUTOMATED 438 K/uL (150-450)
--- NOTE | 2018-12-14 07:27 | General Surgery Progress Note ---
Subjective Progress Notes Subjective Main complaint is cough. Taking tessalon perles every 8 hours. No chest or chest wall pain. No other complaints today. Physical Exam Vital Signs Date Time Temp Pulse Resp B/P (MAP) Pulse Ox O2 Delivery O2 Flow Rate FiO2 12/14/18 04:25 80 12/14/18 02:36 98.8 80 18 160/100 (120) Nasal Cannula 2.0 Intake and Output 12/14/18 07:00 Intake Total 2090 ml Balance 2090 ml Intake Oral 1000 ml IV Total 1090 ml # Voids 3 # Bowel Movements 4 General Appearance: Alert, Awake, No Acute Distress, Afebrile Chest: No Tenderness, Other (Erythema resolving.) Extremities: Warm, Perfused Result Diagram: 12/14/1852712/14/18527 Assessment and Plan Problems: (1) Cellulitis Status: Acute Assessment & Plan: 12/08/18: Will admit her to the hospital and start IV anti biotics. We'll broaden the coverage and include MRSA and so we'll treat her with Zosyn and vancomycin. We'll follow the area of cellulitis for improvement. We'll hydrate her with fluids but we'll let her have a regular diet. We will keep her on PPI and Lovenox for prophylaxis. The plan has been explained to the patient and she is agreeable with this plan. 12/09/18: Continued mild fevers. Creatinine up a little this morning. Will switch zosyn to ceftriaxone, continue vancomycin. Warm compresses to area. If no improvement by tomorrow then will get a CT chest to look for fluid collection(s). 12/10/18: Will give sumatriptan, toradol, and caffeine for her headache. Will get U/S to look for drainable fluid collection in right mastectomy site. If present, will plan on draining this this afternoon. Continue IV abx and rest of current plan. 12/11/18: Drain placed in right chest wall fluid collection. Serous, nonpurulent, fluid evacuated. Gram stain without bacteria and cultures negative so far. Continue current abx regimen. Will as hospitalist service to consult since she's having persistent fevers to see if they have other recommendations on antibiotic coverage. 12/12/18: Continue cellulitis and fevers. Hospitalist Service consulted, they have altered antibiotic coverage. Will get CT chest today to look for undrained fluid/abscess. If no better by tomorrow morning, may need to phone consult with ID. May also need to consider yeast coverage. 12/13/18: Improving cellulitis but continued low grade fevers. Discussed with Hospitalist...fevers may be related to antibiotics. Chest CT yesterday didn't reveal any significant fluid collections or other abnormalities to explain her fevers. Hospitalist recommends continued current antibiotic regimen and letting her recover from the vancomycin and zosyn which were stopped 2 days ago. Cellulitis is improving, will stop abx when resolves and then will see how she feels after we're able to stop all abx. Pigtail catheter removed today due to scant nonpurulent drainage. 12/14/18: Cellulitis continues to improve but continued intermittent, cyclical, low grade fevers. May either be to URI or abx related since cellulitis seems to be much better. Will continue current abx regimen and continue to monitor patient for other signs of infection. Hospitalists continuing to follow and evaluate patient. Drain sites all look good without erythema or drainage. (2) Fever and chills Status: Chronic Condition Stable. Time Spent: < 30 min Exam Sepsis Risk: No Definite Risk Problem Qualifiers (1) Cellulitis: Site of cellulitis: trunk Site of cellulitis of trunk: chest wall Qualified Codes: L03.313 - Cellulitis of chest wall SCAR BOO MD Dec 14, 2018 07:27
[2018-12-14 07:51] VITALS: BP 140/91
[2018-12-14] MEDS: DOCUSATE SODIUM 100 MG CAP PO SCH ×2 (09:00→20:37)
[2018-12-14] MEDS: DIFLUNISAL 500 MG TAB PO SCH ×2 (09:00→09:46)
[2018-12-14] MEDS ORDERED: guaiFENesin 600 MG TABCR PO SCH (09:00)
[2018-12-14] MEDS: VENLAFAXINE XR 75 MG CAPCR PO SCH (09:44)
[2018-12-14] MEDS: CHOLECALCIFEROL 1000 UNIT TAB PO SCH (09:44)
[2018-12-14] MEDS: ENOXAPARIN 40 MG/0.4ML SYR SC SCH (09:44)
[2018-12-14] MEDS: PANTOPRAZOLE SOD 40 MG TABEC PO SCH (09:44)
[2018-12-14] MEDS: OMEGA-3 500 MG CAP PO SCH (09:44)
[2018-12-14] MEDS: EXEMESTANE 25 MG TAB PO SCH (09:47)
[2018-12-14] MEDS: ACETAMINOPHEN 325 MG TAB PO PRN ×2 (09:51→19:15)
--- NOTE | 2018-12-14 12:10 | Hospitalist Progress Note ---
Subjective Progress Notes Subjective Still has some low grade temps. She still has a cough, but denies sputum production. Patient Complains of: Cardiovascular: No: Chest Pain Respiratory: Cough; No: Shortness of Breath Physical Exam Vital Signs Date Time Temp Pulse Resp B/P (MAP) Pulse Ox O2 Delivery O2 Flow Rate FiO2 12/14/18 07:51 100.5 85 16 140/91 (107) 94 Nasal Cannula 1.0 Intake and Output 12/14/18 00:59 Intake Total 3065 ml Balance 3065 ml Intake Oral 1000 ml IV Total 2065 ml # Voids 3 # Bowel Movements 4 General Appearance: Alert, Awake, No Acute Distress Neuro: No Gross deficits Cardiovascular: Regular Rate and Rhythm Respiratory: No Respiratory Distress, Clear to Auscultation Integumentary: Other (erythema noted to left chest, no rashes) Psych: Alert & Oriented X3, Appropriate Mood & Affect Result Diagram: 12/14/1852712/14/18527 Assessment and Plan Problems: (1) Fever Status: Acute Assessment & Plan: She was on IV Vancomycin and Zosyn for presumed chest wall infection. Switched to Rocephin and Clindamycin on 12/12. Still having low grade temps. Chest X-ray clear, repeat blood cultures negative thus far, Lactate normal, and UA unremarkable. Chest CT shows surgical site findings with possible cellulitis vs. surgical vs. radiation changes. Question if the temps may be related to possible drug reaction (increased eosinophils/creatinine). Will stop Rocephin 12/14, secondary to increased liver enzymes. Watch labs closely. (2) Migraine Status: Acute Assessment & Plan: Resolved. She had frontal and right orbital migraine. She had history of migraines, which were associated with hormones. She is receiving Tramadol, which seems to be helping pain. (3) Elevated serum creatinine Status: Acute Assessment & Plan: Creatinine upon admission 0.8, elevated to 1.2 with Zosyn/Vancomycin. Antibiotics changed as above. Creatinine maintaining at 1.2. We also stopped Olmesartan and Toradol. Continue the IVF secondary to getting CT with contrast. Follow. (4) HTN (hypertension) Status: Chronic Assessment & Plan: Holding olmesartan, see above, and will use clonidine prn. Exam Sepsis Risk: No Definite Risk Problem Qualifiers (1) HTN (hypertension): Hypertension type: essential hypertension Qualified Codes: I10 - Essential (primary) hypertension [facility] Dec 14, 2018 12:10
[2018-12-14 12:27] VITALS: BP 129/1
[2018-12-14] MEDS: BENZOCAINE/MENTHOL 1 EACH LOZG PO PRN (13:35)
[2018-12-14 15:32] VITALS: BP 158/101
[2018-12-14 18:56] VITALS: BP 161/98
[2018-12-14] MEDS: GUAIFENESIN/DEXTROMETHORPHAN 5 ML PO PRN (19:15)
[2018-12-14] MEDS: GABAPENTIN 300 MG CAP PO SCH (20:37)
[2018-12-14 23:15] VITALS: BP 150/101
[2018-12-15] VITALS (7 sets, daily range): BP systolic 125–162; BP diastolic 77–98
[2018-12-15] MEDS: BENZOCAINE/MENTHOL 1 EACH LOZG PO PRN (02:13)
[2018-12-15] MEDS: GUAIFENESIN/DEXTROMETHORPHAN 5 ML PO PRN ×4 (02:13→20:31)
[2018-12-15] MEDS: ACETAMINOPHEN 325 MG TAB PO PRN ×3 (02:13→15:01)
[2018-12-15] MEDS: cloNIDine HCL 0.1 MG TAB PO PRN ×2 (02:13→21:55)
[2018-12-15] MEDS: CLINDAMYCIN(*) 600 MG/NS 50 ML 50 ML IVPB SCH (02:14)
[2018-12-15 05:38] LABS: PLATELET COUNT, AUTOMATED 492 K/uL (150-450)
--- NOTE | 2018-12-15 08:25 | General Surgery Progress Note ---
Subjective Progress Notes Subjective Still not feeling well. No pain in chest. Physical Exam Vital Signs Date Time Temp Pulse Resp B/P (MAP) Pulse Ox O2 Delivery O2 Flow Rate FiO2 12/15/18 07:17 99.5 70 14 139/89 (106) 93 Nasal Cannula 1.0 Intake and Output 12/15/18 07:00 Intake Total 1050 ml Balance 1050 ml Intake Oral 0 ml IV Total 1050 ml # Voids 4 # Bowel Movements 4 General Appearance: Alert, Awake, No Acute Distress, Afebrile Chest: Other (Skin is lightly pink, no fluctuance or induration) Extremities: Warm, Perfused Result Diagram: 12/15/1852012/15/18520 Assessment and Plan Problems: (1) Cellulitis Status: Acute Assessment & Plan: 12/08/18: Will admit her to the hospital and start IV antibiotics. We'll broaden the coverage and include MRSA and so we'll treat her with Zosyn and vancomycin. We'll follow the area of cellulitis for improvement. We'll hydrate her with fluids but we'll let her have a regular diet. We will keep her on PPI and Lovenox for prophylaxis. The plan has been explained to the patient and she is agreeable with this plan. 12/09/18: Continued mild fevers. Creatinine up a little this morning. Will switch zosyn to ceftriaxone, continue vancomycin. Warm compresses to area. If no improvement by tomorrow then will get a CT chest to look for fluid collec tion(s). 12/10/18: Will give sumatriptan, toradol, and caffeine for her headache. Will get U/S to look for drainable fluid collection in right mastectomy site. If present, will plan on draining this this afternoon. Continue IV abx and rest of current plan. 12/11/18: Drain placed in right chest wall fluid collection. Serous, nonpurulent, fluid evacuated. Gram stain without bacteria and cultures negative so far. Continue current abx regimen. Will as hospitalist service to consult since she's having persistent fevers to see if they have other recommendations on antibiotic coverage. 12/12/18: Continue cellulitis and fevers. Hospitalist Service consulted, they have altered antibiotic coverage. Will get CT chest today to look for undrained fluid/abscess. If no better by tomorrow morning, may need to phone consult with ID. May also need to consider yeast coverage. 12/13/18: Improving cellulitis but continued low grade fevers. Discussed with Hospitalist...fevers may be related to antibiotics. Chest CT yesterday didn't reveal any significant fluid collections or other abnormalities to explain her fevers. Hospitalist recommends continued current antibiotic regimen and letting her recover from the vancomycin and zosyn which were stopped 2 days ago. Cellulitis is improving, will stop abx when resolves and then will see how she feels after we're able to stop all abx. Pigtail catheter removed today due to scant nonpurulent drainage. 12/14/18: Cellulitis continues to improve but continued intermittent, cyclical, low grade fevers. May either be to URI or abx related since cellulitis seems to be much better. Will continue current abx regimen and continue to monitor patient for other signs of infection. Hospitalists continuing to follow and evaluate patient. Drain sites all look good without erythema or drainage. 12/15/18: Continued fevers. Possibly abx related. Will stop all abx at this point since cellulitis appears essentially resolved. Send stool for C.diff today. Continue inpatient care until fevers improve. (2) Fever and chills Status: Chronic (3) Diarrhea Status: Acute Assessment & Plan: Stool cultures and C.diff pending (4) Cough Status: Acute Assessment & Plan: Nonproductive, will follow this. Abx coverage has been very broad and should cover most bacterial respiratory infections although no signs of PNA on CT or CXR. Condition Stable. Time Spent: < 30 min Exam Sepsis Risk: No Definite Risk Problem Qualifiers (1) Cellulitis: Site of cellulitis: trunk Site of cellulitis of trunk: chest wall Qualified Codes: L03.313 - Cellulitis of chest wall (2) Diarrhea: Diarrhea type: unspecified type Qualified Codes: R19.7 - Diarrhea, unspecifi ed SCAR BOO MD Dec 15, 2018 08:25
[2018-12-15] MEDS: DIFLUNISAL 500 MG TAB PO SCH (08:44)
[2018-12-15] MEDS: CHOLECALCIFEROL 1000 UNIT TAB PO SCH (08:45)
[2018-12-15] MEDS: OMEGA-3 500 MG CAP PO SCH (08:45)
[2018-12-15] MEDS: VENLAFAXINE XR 75 MG CAPCR PO SCH (08:45)
[2018-12-15] MEDS: ENOXAPARIN 40 MG/0.4ML SYR SC SCH (08:45)
[2018-12-15] MEDS: EXEMESTANE 25 MG TAB PO SCH (08:46)
[2018-12-15] MEDS: PANTOPRAZOLE SOD 40 MG TABEC PO SCH (08:46)
[2018-12-15] MEDS: ONDANSETRON 4 MG/2 ML VIAL IVP PRN (08:52)
[2018-12-15] MEDS: DOCUSATE SODIUM 100 MG CAP PO SCH ×2 (09:00→20:31)
--- NOTE | 2018-12-15 11:15 | Hospitalist Progress Note ---
Subjective Progress Notes Subjective She spiked a fever last night. Appetite is still low. Physical Exam Vital Signs Date Time Temp Pulse Resp B/P (MAP) Pulse Ox O2 Delivery O2 Flow Rate FiO2 12/15/18 11:09 97.8 12/15/18 09:11 91 Room Air 12/15/18 07:17 70 14 139/89 (106) 1.0 Intake and Output 12/15/18 07:00 Intake Total 1050 ml Balance 1050 ml Intake Oral 0 ml IV Total 1050 ml # Voids 4 # Bowel Movements 4 General Appearance: Alert, Awake, No Acute Distress Result Diagram: 12/15/1852012/15/18520 Assessment and Plan Problems: (1) Fever Status: Acute Assessment & Plan: She was on IV Vancomycin and Zosyn for presumed chest wall infection. Switched to Rocephin and Clindamycin on 12/12. Rocephin stopped on 12/14. Still having fevers, but clinically looking better. Chest X-ray clear, repeat blood cultures negative thus far, Lactate normal, and UA unremarkable. Chest CT shows surgical site findings with possible cellulitis vs. surgical vs. radiation changes. Question if the temps may be related to possible drug r eaction (increased eosinophils/creatinine) vs rheumatologic. Clindamycin stopped today. (2) Migraine Status: Acute Assessment & Plan: Resolved. She had frontal and right orbital migraine. She had history of migraines, which were associated with hormones. She is receiving Tramadol, which seems to be helping pain. (3) Elevated serum creatinine Status: Acute Assessment & Plan: Creatinine upon admission 0.8, elevated to 1.2 with Zosyn/Vancomycin. Antibiotics changed as above. Creatinine maintaining at 1.1. We also stopped Olmesartan and Toradol. Saline lock. Will follow. (4) HTN (hypertension) Status: Chronic Assessment & Plan: Holding olmesartan, see above, and will use clonidine prn. Exam Sepsis Risk: No Definite Risk Problem Qualifiers (1) HTN (hypertension): Hypertension type: essential hypertension Qualified Codes: I10 - Essential (primary) hypertension MAURICE FINE MD Dec 15, 2018 11:15
[2018-12-15] MEDS: LACTOBACILLUS ACIDOPHILUS TAB PO SCH ×2 (12:06→16:41)
[2018-12-15] MEDS: traMADol 50 MG TAB PO PRN ×2 (16:41→21:55)
[2018-12-15] MEDS ORDERED: LOPERAMIDE HCL 2 MG CAP PO PRN (19:30)
[2018-12-15] MEDS: GABAPENTIN 300 MG CAP PO SCH (20:31)
[2018-12-16] MEDS: BENZOCAINE/MENTHOL 1 EACH LOZG PO PRN (01:11)
[2018-12-16 03:35] VITALS: BP 126/82
[2018-12-16] MEDS: GUAIFENESIN/DEXTROMETHORPHAN 5 ML PO PRN ×3 (03:57→15:45)
[2018-12-16] MEDS: BENZONATATE 100 MG CAP PO PRN (03:57)
[2018-12-16 06:11] LABS: PLATELET COUNT, AUTOMATED 477 K/uL (150-450)
--- NOTE | 2018-12-16 07:20 | General Surgery Progress Note ---
Subjective Progress Notes Subjective Pt has a headache this morning but otherwise feels well. Physical Exam Vital Signs Date Time Temp Pulse Resp B/P (MAP) Pulse Ox O2 Delivery O2 Flow Rate FiO2 12/16/18 03:35 99.4 74 18 126/82 (97) 92 Nasal Cannula 1.0 Intake and Output 12/16/18 07:00 Intake Total 0 ml Balance 0 ml Intake Oral 0 ml # Voids 6 # Bowel Movements 3 General Appearance: Alert, Awake, No Acute Distress, Afebrile Chest: Other (Light pink color in skin is improving. No drainage) Extremities: Warm, Perfused Result Diagram: 12/16/18 0542 12/16/18541 Assessment and Plan Problems: (1) Cellulitis Status: Acute Assessment & Plan: 12/08/18: Will admit her to the hospital and start IV antibi otics. We'll broaden the coverage and include MRSA and so we'll treat her with Zosyn and vancomycin. We'll follow the area of cellulitis for improvement. We'll hydrate her with fluids but we'll let her have a regular diet. We will keep her on PPI and Lovenox for prophylaxis. The plan has been explained to the patient and she is agreeable with this plan. 12/09/18: Continued mild fevers. Creatinine up a little this morning. Will switch zosyn to ceftriaxone, continue vancomycin. Warm compresses to area. If no improvement by tomorrow then will get a CT chest to look for fluid collection(s). 12/10/18: Will give sumatriptan, toradol, and caffeine for her headache. Will get U/S to look for drainable fluid collection in right mastectomy site. If present, will plan on draining this this afternoon. Continue IV abx and rest of current plan. 12/11/18: Drain placed in right chest wall fluid collection. Serous, nonpurulent, fluid evacuated. Gram stain without bacteria and cultures negative so far. Continue current abx regimen. Will as hospitalist service to consult since she's having persistent fevers to see if they have other recommendations on antibiotic coverage. 12/12/18: Continue cellulitis and fevers. Hospitalist Service consulted, they have altered antibiotic coverage. Will get CT chest today to look for undrained fluid/abscess. If no better by tomorrow morning, may need to phone consult with ID. Desi also need to consider yeast coverage. 12/13/18: Improving cellulitis but continued low grade fevers. Discussed with Hospitalist...fevers may be related to antibiotics. Chest CT yesterday didn't reveal any significant fluid collections or other abnormalities to explain her fevers. Hospitalist recommends continued current antibiotic regimen and letting her recover from the vancomycin and zosyn which were stopped 2 days ago. Cellulitis is improving, will stop abx when resolves and then will see how she feels after we're able to stop all abx. Pigtail catheter removed today due to scant nonpurulent drainage. 12/14/18: Cellulitis continues to improve but continued intermittent, cyclical, low grade fevers. May either be to URI or abx related since cellulitis seems to be much better. Will continue current abx regimen and continue to monitor patient for other signs of infection. Hospitalists continuing to follow and evaluate patient. Drain sites all look good without erythema or drainage. 12/15/18: Continued fevers. Possibly abx related. Will stop all abx at this point since cellulitis appears essentially resolved. Send stool for C.diff alma mantilla. Continue inpatient care until fevers improve. 12/16/18: Stopped abx yesterday. Had very mild temperature elevations of just over 99F. Will follow this today. If continues to improve then possibly home later today vs tomorrow. (2) Fever and chills Status: Chronic (3) Diarrhea Status: Acute Assessment & Plan: Stool cultures and C.diff pending (4) Cough Status: Acute Assessment & Plan: Nonproductive, will follow this. Abx coverage has been very broad and should cover most bacterial respiratory infections although no signs of PNA on CT or CXR. Condition Stable. Time Spent: < 30 min Exam Sepsis Risk: No Definite Risk Problem Qualifiers (1) Cellulitis: Site of cellulitis: trunk Site of cellulitis of trunk: chest wall Qualified Codes: L03.313 - Cellulitis of chest wall (2) Diarrhea: Diarrhea type: unspecified type Qualified Codes: R19.7 - Diarrhea, unspecified SCAR BOO MD Dec 16, 2018 07:20
--- NOTE | 2018-12-16 08:53 | Hospitalist Progress Note ---
Subjective Progress Notes Subjective She reports some overall improvements. Temperature is down slightly. Physical Exam Vital Signs Date Time Temp Pulse Resp B/P (MAP) Pulse Ox O2 Delivery O2 Flow Rate FiO2 12/16/18 03:35 99.4 74 18 126/82 (97) 92 Nasal Cannula 1.0 Intake and Output 12/16/18 06:59 Intake Total 0 ml Balance 0 ml Intake Oral 0 ml # Voids 6 # Bowel Movements 3 General Appearance: Alert, Awake Result Diagram: 12/16/18 0542 12/16/18 0542 Assessment and Plan Problems: (1) Fever Status: Acute Assessment & Plan: She was on IV Vancomycin and Zosyn for presumed chest wall infection. Switched to Rocephin and Clindamycin on 12/12. Rocephin stopped on 12/14. Clindamycin stopped 12/15. Still low grade temps, but clinically looking better. Chest X-ray clear, repeat blood cultures negative thus far, Lactate normal, and UA unremarkable. Chest CT shows surgical site findings with possible cellulitis vs. surgical vs. radiation changes. Suspect the temps may be related to possible drug reaction (increased eosinophils/creatinine) vs. rhe umatologic. It appears Zosyn is probably the offending agent. No changes from our standpoint. (2) Migraine Status: Acute Assessment & Plan: Resolved. She had frontal and right orbital migraine. She had history of migraines, which were associated with hormones. She is receiving Tramadol, which seems to be helping pain. (3) Elevated serum creatinine Status: Acute Assessment & Plan: Creatinine upon admission 0.8, elevated to 1.2 with Zosyn/Vancomycin. Antibiotics changed as above. Creatinine maintaining at 1.1. We also stopped Olmesartan and Toradol. Saline lock. Will follow. (4) HTN (hypertension) Status: Chronic Assessment & Plan: Holding olmesartan, see above, and will use clonidine prn. Exam Sepsis Risk: No Definite Risk Problem Qualifiers (1) HTN (hypertension): Hypertension type: essential hypertension Qualified Codes: I10 - Essential (primary) hypertension BREANNA GODDARD MD Dec 16, 2018 08:53
[2018-12-16] MEDS: ENOXAPARIN 40 MG/0.4ML SYR SC SCH (09:00)
[2018-12-16] MEDS: DOCUSATE SODIUM 100 MG CAP PO SCH ×2 (09:00→20:33)
[2018-12-16 09:02] VITALS: BP 98/62
[2018-12-16] MEDS: EXEMESTANE 25 MG TAB PO SCH (09:05)
[2018-12-16] MEDS: VENLAFAXINE XR 75 MG CAPCR PO SCH (09:05)
[2018-12-16] MEDS: LACTOBACILLUS ACIDOPHILUS TAB PO SCH ×3 (09:06→18:57)
[2018-12-16] MEDS: OMEGA-3 500 MG CAP PO SCH (09:06)
[2018-12-16] MEDS: CHOLECALCIFEROL 1000 UNIT TAB PO SCH (09:07)
[2018-12-16] MEDS: PANTOPRAZOLE SOD 40 MG TABEC PO SCH (09:08)
[2018-12-16 10:49] VITALS: BP 111/78
[2018-12-16] MEDS: POTASSIUM CHL 10 MEQ TABCR PO SCH ×2 (10:49→18:57)
[2018-12-16 15:42] VITALS: BP 153/93
[2018-12-16] MEDS: traMADol 50 MG TAB PO PRN (15:45)
[2018-12-16 19:10] VITALS: BP 144/97
[2018-12-16] MEDS: GABAPENTIN 300 MG CAP PO SCH (20:32)
[2018-12-16] MEDS: ZOLPIDEM TARTRATE 5 MG TAB PO PRN (20:32)
[2018-12-17 05:23] VITALS: BP 129/84
[2018-12-17 06:22] LABS: PLATELET COUNT, AUTOMATED 550 K/uL (150-450)
[2018-12-17 06:52] VITALS: BP 134/78
--- NOTE | 2018-12-17 07:08 | Short(Outpt) Discharge Summary ---
Discharge Summary Reason for Hosp/Final Diag: (1) Cellulitis Status: Resolved Hospital Course & Plan: 12/08/18: Will admit her to the hospital and start IV antibiotics. We'll broaden the coverage and include MRSA and so we'll treat her with Zosyn and vancomycin. We'll follow the area of cellulitis for improvement. We'll hydrate her with fluids but we'll let her have a regular diet. We will keep her on PPI and Lovenox for prophylaxis. The plan has been explained to the patient and she is agreeable with this plan. 12/09/18: Continued mild fevers. Creatinine up a little this morning. Will switch zosyn to ceftriaxone, continue vancomycin. Warm compresses to area. If no improvement by tomorrow then will get a CT chest to look for fluid collection(s). 12/10/18: Will give sumatriptan, toradol, and caffeine for her headache. Will get U/S to look for drainable fluid collection in right mastectomy site. If present, will plan on draining this this afternoon. Continue IV abx and rest of current plan. 12/11/18: Drain placed in right chest wall fluid collection. Serous, nonpurulent, fluid evacuated. Gram stain without bacteria and cultures negative so far. Continue current abx regimen. Will as hospitalist service to consult since she's having persistent fevers to see if they have other recommendations on antibiotic coverage. 12/12/18: Continue cellulitis and fevers. Hospitalist Service consulted, they have altered antibiotic coverage. Will get CT chest today to look for undrained fluid/abscess. If no better by tomorrow morning, may need to phone consult with ID. May also need to consider yeast coverage. 12/13/18: Improving cellulitis but continued low grade fevers. Discussed with Hospitalist...fevers may be related to antibiotics. Chest CT yesterday didn't reveal any significant fluid collections or other abnormalities to explain her fevers. Hospitalist recommends continued current antibiotic regimen and letting her recover from the vancomycin and zosyn which were stopped 2 days ago. Cellulitis is improving, will stop abx when resolves and then will see how she feels after we're able to stop all abx. Pigtail catheter removed today due to scant nonpurulent drainage. 12/14/18: Cellulitis continues to improve but continued intermittent, cyclical, low grade fevers. May either be to URI or abx related since cellulitis seems to be much better. Will continue current abx regimen and continue to monitor patient for other signs of infection. Hospitalists continuing to follow and evaluate patient. Drain sites all look good without erythema or drainage. 12/15/18: Continued fevers. Possibly abx related. Will stop all abx at this point since cellulitis appears essentially resolved. Send stool for C.diff today. Continue inpatient care until fevers improve. 12/16/18: Stopped abx yesterday. Had very mild temperature elevations of just over 99F. Will follow this today. If continues to improve then possibly home later today vs tomorrow. 12/17/18: Doing much better. Fevers continued to decline and now temperatures have been less than 99.5F since yesterday afternoon and patient is feeling very good this morning. I have noticed that Tracy is always bundled up in blankets when I see her and so it is possible this explains the 99F temperatures and not true fevers. Cellulitis has resolved. Will d/c to home this morning. (2) Fever and chills Status: Resolved (3) Diarrhea Status: Resolved Hospital Course & Plan: Stool cultures and C.diff pending (4) Cough Status: Resolved Hospital Course & Plan: Nonproductive, will follow this. Abx coverage has been very broad and should cover most bacterial respiratory infections although no signs of PNA on CT or CXR. Departure Discharge to: Home, Self Care Discharge Instructions Home Meds Active Scripts Ondansetron 4 Mg Odt (ONDANSETRON 4 MG ODT) 4 Mg Tab.rapdis, 1 TAB PO TID PRN for NAUSEA, #20 TAB 0 Refills Prov:SCAR BOO MD 12/07/18 Zolpidem Tartrate (AMBIEN) 5 Mg Tablet, 1 TAB PO QHS PRN for INSOMNIA, #30 TAB 0 Refills Prov:DESENA SOTO DNP, FNP-BC 11/04/18 Venlafaxine Hcl (EFFEXOR XR) 75 Mg Cap.er.24h, 75 MG PO QDAY, #90 TAB 1 Refill Prov:DESEAN SOTO DNP, FNP-BC 10/20/18 Olmesartan Medoxomil (BENICAR) 20 Mg Tablet, 1 TAB PO QDAY, #90 TAB 3 Refills Prov:DESEAN SOTO DNP, [facility] 09/16/18 Omeprazole (OMEPRAZOLE) 40 Mg Capsule., 40 MG PO QDAY for 90 Days, #90 CAP 1 Refill Prov:DESEAN SOTO DNP, [facility] 06/09/18 Gabapentin (GABAPENTIN) 300 Mg Capsule, 3 CAP PO QHS for neuropathy, #90 CAPSULE 11 Refills Prov:DESEAN SOTO DNP, [facility] 03/11/18 Reported Medications Acetaminophen (TYLENOL EXTRA STRENGTH) 500 Mg Tablet, 2 TAB PO Q6H, TAB 12/08/18 Ibuprofen (IBUPROFEN) 600 Mg Tablet, 1 TAB PO Q6H, TAB 12/08/18 Calcium Carbonate (CALCIUM) Unknown Strength Tablet, 600 MG PO QDAY 10/13/18 Diflunisal (DIFLUNISAL) 500 Mg Tablet, 1 TAB PO QDAY, TAB 09/16/18 Exemestane (AROMASIN) 25 Mg Tab, 1 TAB PO QDAY, TAB 08/20/17 Wright-3 Fatty Acids/Fish Oil (FISH OIL 1,000 MG CAPSULE) 1 Each Capsule, 1 CAP PO QDAY, CAPSULE 11/12/16 Cholecalciferol (Vitamin D3) (VITAMIN D-3) 2,000 Unit Capsule, 5000 UNIT PO DAILY, CAPSULE 05/20/16 Discontinued Scripts Ondansetron (ZOFRAN ODT) 8 Mg Tab.rapdis, 1 TAB PO Q12H PRN for NAUSEA, #10 TAB 0 Refills Prov:DESEAN SOTO DNP, [facility] 02/18/18 Follow up Referrals: General Surgery - 12/23/18 @ Surgery, General with SCAR BOO MD You have a follow up appointment scheduled with Dr. Boo on 12/23/18, at 3:45pm. Diet: Regular Activity: As Tolerated Special Instructions: Drink plenty of hydrating fluids throughout the day so your liver and kidney functions return to normal. I will have my nurse, Ronel, order labs for you so that I will have the results when I see you back in my office next week. Please don't hesitate to call if you start feeling worse, having worsening fevers, redness, pain, drainage, etc. Problem Qualifiers (1) Cellulitis: Site of cellulitis: trunk Site of cellulitis of trunk: chest wall Qualified Codes: L03.313 - Cellulitis of chest wall (2) Diarrhea: Diarrhea type: unspecified type Qualified Codes: R19.7 - Diarrhea, unspecified SCAR BOO MD Dec 17, 2018 07:08
[2018-12-17] MEDS ORDERED: BENZ100C4 PO (08:00)
[2018-12-17] MEDS: CHOLECALCIFEROL 1000 UNIT TAB PO SCH (08:21)
[2018-12-17] MEDS: ENOXAPARIN 40 MG/0.4ML SYR SC SCH (08:21)
[2018-12-17] MEDS: VENLAFAXINE XR 75 MG CAPCR PO SCH (08:21)
[2018-12-17] MEDS: PANTOPRAZOLE SOD 40 MG TABEC PO SCH (08:21)
[2018-12-17] MEDS: POTASSIUM CHL 10 MEQ TABCR PO SCH (08:21)
[2018-12-17] MEDS: LACTOBACILLUS ACIDOPHILUS TAB PO SCH (08:21)
[2018-12-17] MEDS: EXEMESTANE 25 MG TAB PO SCH (08:22)
[2018-12-17] MEDS: OMEGA-3 500 MG CAP PO SCH (08:23)
[2018-12-17] MEDS: DOCUSATE SODIUM 100 MG CAP PO SCH (08:23)
--- NOTE | 2018-12-17 08:54 | NUR ---
no IV access Addendum: 12/17/18 at 0856 by THEODORE EDWARDS RN Amended: Links added.
--- NOTE | 2018-12-17 09:06 | Hospitalist Progress Note ---
Subjective Progress Notes Subjective She still has complaints of cough, but feels it is improving. She would like to go home today. She has no acute events overnight. Patient Complains of: Cardiovascular: No: Chest Pain Respiratory: No: Shortness of Breath Physical Exam Vital Signs Date Time Temp Pulse Resp B/P (MAP) Pulse Ox O2 Delivery O2 Flow Rate FiO2 12/17/18 08:30 91 Room Air 12/17/18 06:52 99.4 72 16 134/78 (96) 1.0 Intake and Output 12/17/18 00:59 Intake Total 960 ml Output Total 35 ml Balance 925 ml Intake Oral 960 ml Drainage Total 35 ml # Voids 6 # Bowel Movements 5 General Appearance: Alert, Awake, No Acute Distress, Afebrile Neuro: No Gross deficits Cardiovascular: Regular Rate and Rhythm Respiratory: No Respiratory Distress, Clear to Auscultation GI: Soft and Non-Tender Extremities: Warm, Perfused; No Edema Psych: Alert & Oriented X3, Appropriate Mood & Affect Result Diagram: 12/17/18 0543 12/17/18 0543 Assessment and Plan Problems: (1) Fever Status: Acute Assessment & Plan: She was on IV Vancomycin and Zosyn for presumed chest wall infection. Switched to Rocephin and Clindamycin on 12/12. Rocephin stopped on 12/14. Clindamycin stopped 12/15. Still low grade temps, but clinically looking better. Chest X-ray clear, repeat blood cultures negative thus far, Lactate normal, and UA unremarkable. Chest CT shows surgical site findings with possible cellulitis vs. surgical vs. radiation changes. Suspect the temps may be related to possible drug reaction (increased eosinophils/creatinine) vs. rheumatologic. It appears Zosyn is probably the offending agent. No changes from our standpoint. (2) Migraine Status: Acute Assessment & Plan: Resolved. She had frontal and right orbital migraine. She had history of migraines, which were associated with hormones. She is receiving Tramadol, which seems to be helping pain. (3) Elevated serum creatinine Status: Acute Assessment & Plan: Creatinine upon admission 0.8, elevated to 1.2 with Zosyn/Vancomycin. Antibiotics changed as above. Creatinine maintaining at 1.1. We also stopped Olmesartan and Toradol with no change in kidney function. Will resume Olmesartan at home. (4) HTN (hypertension) Status: Chronic Assessment & Plan: She will resume olmesartan at home. 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
== END 2018-12-17 08:40 | disposition home or self-care (01) | DRG 863 ==
LOC: MED 10:41
PROVIDERS: ADMIT Surgery; ATTEND Surgery
PROC: 0W9930Z Drainage of Right Pleural Cavity with Drainage Device, Percutaneous Approach (ICD-10-PCS; principal; 2018-12-10)
DX: T81.49XA Infection following a procedure, other surgical site, initial encounter (principal); L03.313 Cellulitis of chest wall; E55.9 Vitamin D deficiency, unspecified; G43.909 Migraine, unspecified, not intractable, without status migrainosus; R19.7 Diarrhea, unspecified; Y83.8 Other surgical procedures as the cause of abnormal reaction of the patient, or of later complication, without mention of misadventure at the time of the procedure; Y82.8 Other medical devices associated with adverse incidents; Z85.3 Personal history of malignant neoplasm of breast; Z90.13 Acquired absence of bilateral breasts and nipples; Z80.0 Family history of malignant neoplasm of digestive organs; Z91.040 Latex allergy status; Z88.0 Allergy status to penicillin; Z88.8 Allergy status to other drugs, medicaments and biological substances
CPT/HCPCS: 36415; 71045; 71260; 76604; 80202; 81001; 82040; 82247; 82248; 82310; 82374; 82435; 82565; 82947; 83735; 84075; 84132; 84155; 84295; 84450; 84460; 84520; 85025; 85651; 86038; 86140; 87040; 87045; 87071; 87073; 87205; 87324; 87449; 87502; 94667; 94668; J0696; J1650; J1885; J2405; J2543; J2550; J3370; J3480; J3490; J7030; J7040; J7050; J7060; Q0163; Q9967

== ENCOUNTER → 2018-12-22 | Outpatient (CLI) | payer OTHER ==
[2018-12-09 10:36] VITALS: BMI 27.8
[~2018-12-22] MED LIST changes: +ACET500T68 PO; +BENZ100C4 PO; +IBUP600T22 PO
[2018-12-22 12:32] VITALS: BP 158/99
[2018-12-22 12:43] LABS: PLATELET COUNT, AUTOMATED 565 K/uL (150-450)
== END ==
LOC: SPU 12:19
PROVIDERS: ATTEND Surgery
DX: I10 Essential (primary) hypertension (principal); R79.89 Other specified abnormal findings of blood chemistry; R74.8 Abnormal levels of other serum enzymes
CPT/HCPCS: 36415; 82040; 82247; 82310; 82374; 82435; 82565; 82947; 84075; 84132; 84155; 84295; 84450; 84460; 84520; 85025

== ENCOUNTER → 2018-12-31 | Outpatient (CLI) | payer OTHER ==
[2018-12-09 10:36] VITALS: BMI 27.8
[~2018-12-31] MED LIST changes: +CHLO-172 PO; +HYDR-2966 PO; +IPR14R INH; +TRAM-420 PO
--- NOTE | 2018-12-31 18:28 | RADIOLOGY IMAGING REPORT ---
FACILITY: PATIENT NAME: Tracy Avila : 1970 MR: [id number] V: [id number] EXAM DATE: ORDERING PHYSICIAN: DESEAN SOTO TECHNOLOGIST: Location: [facility] Patient: Tracy Avila : 1970 Visit/Account:[id number] Date of Sevice: 12/31/2018 CHEST PA LAT Additional pertinent History: Cough x3 weeks COMPARISON STUDIES: 12/11/2018 FINDINGS: Support lines and catheters: The previously seen right chest wall pigtail catheter has been removed. Lungs and Pleura: No infiltrates or consolidations. No effusions. No parenchymal mass lesions. Heart and vasculature: Negative. Tammi and Mediastinum: Negative. Bones and Chest wall: Status post bilateral mastectomies. Upper Abdomen: Negative. IMPRESSION: 1. Negative chest for acute cardiopulmonary disease. Report Dictated By: Min Rascon MD at 12/31/2018 6:19 PM Report E-Signed By: Min Rascon MD at 12/31/2018 6:24 PM WSN:[email or web address]
== END ==
LOC: RAD 17:25
PROVIDERS: ATTEND Nurse Practitioner Primary Care
DX: R05 Cough (principal)
CPT/HCPCS: 71046

== ENCOUNTER 2019-01-22 07:00 | Outpatient (RCR) | payer OTHER ==
[2018-12-09 10:36] VITALS: BMI 27.8
--- NOTE | 2019-01-20 07:32 | PT INITIAL EVALUATION ---
MEDICAL DIAGNOSIS: S/P Bilateral Mastectomy TREATMENT DIAGNOSIS: S/P Bilateral Mastectomy, Axillary Cording DATE OF ONSET: 01/18/19 SUBJECTIVE: Tracy is a 48 year old female presenting to physical therapy following recent accumulation of scar tissue with complications following breast cancer. Pt reports that she was initially diagnosed with breast cancer in 2013 with B mastectomies,chemotherapy and radiation therapy extending into 2014. Following pt had breast implants placed B. At the beginning of this year pt developed infections with cellulitis on the R breast and had to get breast revisions and implant removals B in November,. Following pt reports that her chest seems tighter and that her shoulder motion feels stiff at end range. Pt reports occasional pain and restricted sensations in both the axilla and chest wall. 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 ROM: Shoulder ROM B: WNL with tightness in end range on the R. Strength: Shoulder MMT (R,L): flexion: 5-/5, 5/5, ext: B 5/5, ER/IR: 5-/5, 5/5, abd: B 5/5 Palpation: Pt presents with incision along the inferior margin of the R anterior chest wall with significant restrictions on the center most portion and moderate restrictions on the medial and lateral ends. Additionally pt has a palpable horizontal scar tissue nodule across the R axilla with overhead reaching. Special Tests: Impingement, RTC, and AC joint testing (-) ASSESSMENT: Tracy presents with signs and symptoms consistent with R axillary cording and scar tissue restrictions following recent R breast revision and implant removal. Physical therapy is indicated to improve the above listed deficits to improve pt function with ADL's. Short Term Goals In 4 weeks pt will have full ROM without pain or stiffness on the R with shoulder flexion and abduction for improved function with ADL's. In 4 weeks pt will improve R UE strength to equal to that of the L for improved function with ADL's. In 4 weeks pt will have minimal adhesions along both incisions in the axilla as well as on the anterior chest wall. Patient's Goals Decrease adhesions and tightness at end range shoulder motion. PLAN: Patient to be seen for Manual Therapy/STM/MET Strengthening/condition Ice/Heat Range of Motion Ultrasound Posture/Body mechanics Home Exercise Program [facility]./Manual Traction Therapeutic Activities 2-3x/Week for 4 Weeks If you have any questions, comments, or concerns about this report or plan, please contact me at . Thank you, Shy Benjamin, PT, DPT, CLT MTDD
[~2019-01-22 07:00] MED LIST changes: -RANI-366 PO; +RANI-54 PO; -TRAZ50TA34 PO; +TRAZ50TA52 PO
[2019-03-11] MEDS ORDERED: ZOLP-1 PO (14:15)
== END 2019-01-22 18:00 | disposition home or self-care (01) ==
LOC: PT 07:00
PROVIDERS: ATTEND Surgery
DX: Z48.89 Encounter for other specified surgical aftercare (principal); Z90.13 Acquired absence of bilateral breasts and nipples; L90.5 Scar conditions and fibrosis of skin; Z92.21 Personal history of antineoplastic chemotherapy; Z92.3 Personal history of irradiation
CPT/HCPCS: 97161

== ENCOUNTER → 2019-01-27 | Outpatient (REF) ==
[2018-12-09 10:36] VITALS: BMI 27.8
[~2019-01-27] MED LIST changes: +RANI-366 PO; -RANI-54 PO; +TRAZ50TA34 PO; -TRAZ50TA52 PO
== END ==
DX: Z02.9 Encounter for administrative examinations, unspecified (principal)

== ENCOUNTER → 2019-01-29 | Outpatient (CLI) | payer OTHER ==
[2018-12-09 10:36] VITALS: BMI 27.8
--- NOTE | 2019-01-29 10:19 | RADIOLOGY IMAGING REPORT ---
FACILITY: [facility] PATIENT NAME: Tracy Avila : 1970 MR: [id number] V: [id number] EXAM DATE: ORDERING PHYSICIAN: DESEAN SOTO TECHNOLOGIST: Location: [facility] [place] Patient: Tracy Avila : 1970 Visit/Account:[id number] Date of Sevice: 01/29/2019 Exam type: CHEST History: Mass above right mastectomy scar Comparison: December 10, 2018. Findings: Just superior to the mastectomy scar on the right just lateral to midline there is a small slightly i rregular hypoechoic nodule just beneath the skin measuring 2.5 x 2.4 x 4.6 mm. This is in the report ed location of patient's previous drain. A three month follow-up ultrasound of this region is recomm ended to document stability unless clinical findings were immediate attention IMPRESSION: 1. 2.5 x 2.4 x 4.6 mm hypoechoic nodule just beneath the skin is in the reported location of patient 's previous drain. A three month follow-up ultrasounds regions recommended to document stability and less clinical findings were immediate attention Report Dictated By: Anne Geiger MD at 01/29/2019 9:52 AM Report E-Signed By: Anne Geiger MD at 01/29/2019 10:15 AM WSN:MARY
== END ==
LOC: US 02:13
PROVIDERS: ATTEND Nurse Practitioner Primary Care
DX: R22.2 Localized swelling, mass and lump, trunk (principal)
CPT/HCPCS: 76604

== ENCOUNTER → 2019-02-22 | Outpatient (CLI) | payer OTHER ==
[2018-12-09 10:36] VITALS: BMI 27.8
[~2019-02-22] MED LIST changes: -RANI-366 PO; +RANI-54 PO; -TRAZ50TA34 PO; +TRAZ50TA52 PO
--- NOTE | 2019-02-23 10:06 | RADIOLOGY IMAGING REPORT ---
[place] [facility] [place] Tracy Avila : 1970 MR: [id number] V: [id number] EXAM DATE: ORDERING PHYSICIAN: SCAR BOO TECHNOLOGIST: Location: [facility] Patient: Tracy Avila : 1970 Visit/Account:[id number] Date of Sevice: 02/22/2019 Exam type: CHEST History: chest wall skin lesion. Please examine soft tissue Comparison: January 29, 2019. Findings: The previously noted 2.5 x 2.4 x 4.6 mm hypoechoic nodule just make skin in the location of patient's previously reported drain is no longer seen. No sonographic abnormality was demonstrated in the rig ht anterior chest wall IMPRESSION: 1. No sonographic abnormality identified in the right anterior chest wall Report Dictated By: Anne Geiger MD at 02/23/2019 9:40 AM Report E-Signed By: Anne Geiger MD at 02/23/2019 10:01 AM WSN:[email or web address]
== END ==
LOC: US 00:31
PROVIDERS: ATTEND Surgery
DX: C50.911 Malignant neoplasm of unspecified site of right female breast (principal); Z90.13 Acquired absence of bilateral breasts and nipples; R22.9 Localized swelling, mass and lump, unspecified
CPT/HCPCS: 76604